=== PATIENT | male | born 1980 | race Hispanic/Latino ===

== ENCOUNTER 2017-11-08 17:36 | Emergency (ER) | payer BC ==
[2017-11-08] MEDS ORDERED: ONDANSETRON 4 MG/2 ML VIAL ONE (19:06)
[2017-11-08] MEDS ORDERED: MORPHINE 4 MG/ML SYR ONE (19:06)
[2017-11-08] MEDS ORDERED: NA CHLORIDE 0.9% 1,000 ML ONE (19:15)
[2017-11-08 19:16] LABS: Absolute Lymphocytes (CBC) 1.6 K/uL (0.7-4.9); Absolute Monocytes 0.7 K/uL (0.1-1.3); Absolute Neutrophil 9.8 K/uL (1.8-8.0); Basophils % 0.2 % (0-1.3); Eosinophils % 0.1 % (0-4.4); Hematocrit 45.6 % (39.6-49.0); Lymphocytes % 13.2 % (15.3-44.8); MCH 27.6 pg (27.0-35.0); MPV 10.4 fL (7.6-11.3); RBC Red Blood Cell Count 5.42 M/uL (4.33-5.43)
[2017-11-08 19:19] LABS: Urine Blood 3+ (NEG); Urine Glucose NEGATIVE (NEG); Urine Protein 3+ (NEG); Urine pH 5.5 (5.0-7.0)
--- NOTE | 2017-11-08 19:22 | RAD REPORT ---
EXAM DESCRIPTION: CT - Stone Protocol - 11/08/2017 6:58 pm CLINICAL HISTORY: Flank pain, hematuria COMPARISON: None. TECHNIQUE: Axial 5 mm thick images were obtained without oral or IV contrast. The [id number] span s the entirety of the system including uppermost abdomen and lung bases. All CT scans are performed using dose optimization technique as appropriate and may include automated exposure control or mA/KV adjustment according to patient size. FINDINGS: No hydronephrosis is present and no obstructing ureteral calculi. No suspicious renal mass es. Isodense masses and pyelonephritis are not excluded on a stone protocol CT scan. Urinary bladder is tightly contracted precluding assessment. No bladder calculus seen. No suspicious prostate gland o r seminal vesicle finding. Imaged portions of the liver, spleen and pancreas show no suspicious findings on non-contrast imaging . No gallbladder or biliary tree abnormality identified. No significant adrenal finding. No suspicious bowel findings. No appendicitis. Small bilateral fat filled inguinal hernias are present. No free air, free fluid or inflammatory stra nding. No significant bony abnormality. IMPRESSION: No hydronephrosis, obstructing calculus or acute finding. Urinary bladder is tightly contracted limiting assessment. Isodense masses and pyelonephritis are not excluded on stone protocol technique. Remainder of the study without acute finding.
[2017-11-08 19:27] LABS: ALT/SGPT 43 U/L (12-78); AST/SGOT 28 U/L (15-37); Albumin 3.3 g/dL (3.4-5.0); Alkaline Phosphatase 74 U/L (45-117); BUN Blood Urea Nitrogen 6 mg/dL (7-18); Bicarbonate 29 mmol/L (21-32); Bilirubin Direct 0.3 mg/dL (0-0.2); Bilirubin Total 1.1 mg/dL (0.2-1.0); Glucose Level 115 mg/dL (74-106); Lipase 78 U/L (73-393); Potassium 3.3 mmol/L (3.5-5.1); Protein, Total 7.4 g/dL (6.4-8.2); Sodium Level 141 mmol/L (136-145)
[2017-11-08 19:36] LABS: Urine Amorphous Sediment 2+ /HPF (NONE SEEN); Urine Bacteria >50 /HPF (NONE SEEN); Urine Culture Reflex Order REFLEXED
[2017-11-08] MEDS ORDERED: CEFTRIAXONE/SWI 1gm 1 GM/10 ML SYR ONE (19:52)
[2017-11-08] MEDS ORDERED: POTASSIUM CL SA 10 MEQ TAB PO ONE (19:52)
--- NOTE | 2017-11-08 19:56 | EDPHYS ---
Physician Documentation [facility] Name: Jose A Goetz Jr Age: 37 yrs Sex: Male : 1980 Arrival Date: 11/08/2017 Time: 17:40 Bed 28 Private MD: Allie Moran H ED Physician Ivan Olivares HPI: 11/08 19:00 This 37 yrs old Male presents to ER via Ambulatory with complaints of Urinary kb Problem. 19:00 The patient presents with urinary symptoms, urinary frequency, feels like he needs to kb go then cannot, difficulty urinating. Onset: The symptoms/episode began/occurred this morning. Modifying factors: The symptoms are alleviated by nothing, the symptoms are aggravated by urinating. Associated signs and symptoms: Pertinent positives: abdominal pain, hematuria, Pertinent negatives: constipation, diarrhea, dysuria, fever. Severity of symptoms: At their worst the symptoms were moderate, in the emergency department the symptoms are unchanged. The patient has not experienced similar symptoms in the past. The patient has been recently seen by a physician: the dr that did his gastric sleeve was seen today.. Pt states he has had urinary frequency, difficulty urinating and hematuria since this morning. Also c/o LUQ pain after eating for 2 weeks. Historical: - Allergies: 17:50 No Known Allergies; aj1 - Home Meds: 17:50 None [Active]; aj1 - PMHx: 17:50 None; aj1 - PSHx: 17:50 gastric sleeve; aj1 - Immunization history:: Flu vaccine is not up to date. - Social history:: Smoking status: Patient/guardian denies using tobacco, Patient uses street drugs, marijuana. - Ebola Screening: : Patient denies travel to an Ebola-affected area in the 21 days before illness onset. ROS: 19:00 Constitutional: Negative for fever, chills, and weight loss, Cardiovascular: Negative kb for chest pain, palpitations, and edema, Respiratory: Negative for shortness of breath, cough, wheezing, and pleuritic chest pain, Back: Negative for injury and pain, MS/Extremity: Negative for injury and deformity, Skin: Negative for injury, rash, and discoloration, Neuro: Negative for headache, weakness, numbness, tingling, and seizure. 19:00 Abdomen/GI: Positive for abdominal pain, nausea and vomiting. 19:00 : Positive for urinary symptoms, urinary frequency, hematuria, difficulty urinating. Exam: 19:00 Constitutional: This is a well developed, well nourished patient who is awake, alert, kb and in no acute distress. Head/Face: Normocephalic, atraumatic. Chest/axilla: Normal chest wall appearance and motion. Nontender with no deformity. No lesions are appreciated. Cardiovascular: Regular rate and rhythm with a normal S1 and S2. No gallops, murmurs, or rubs. Normal PMI, no JVD. No pulse deficits. Respiratory: Lungs have equal breath sounds bilaterally, clear to auscultation and percussion. No rales, rhonchi or wheezes noted. No increased work of breathing, no retractions or nasal flaring. Back: No spinal tenderness. No costovertebral tenderness. Full range of motion. Skin: Warm, dry with normal turgor. Normal color with no rashes, no lesions, and no evidence of cellulitis. MS/ Extremity: Pulses equal, no cyanosis. Neurovascular intact. Full, normal range of motion. Neuro: Awake and alert, GCS 15, oriented to person, place, time, and situation. Cranial nerves II-XII grossly intact. Motor strength 5/5 in all extremities. Sensory grossly intact. Cerebellar exam normal. Normal gait. 19:00 Abdomen/GI: Inspection: abdomen appears normal, Bowel sounds: normal, in all quadrants, Palpation: soft, in all quadrants, nontender, in the right upper quadrant, right lower quadrant and left lower quadrant, moderate abdominal tenderness, in the left upper quadrant. Vital Signs: 17:50 BP 124 / 74; Pulse 84; Resp 18; Temp 98.4; Pulse Ox 97% on R/A; Weight 140.61 kg (R); aj1 Height 5 ft. 9 in. (175.26 cm) (R); 19:13 BP 118 / 86; rv 17:50 Body Mass Index 45.78 (140.61 kg, 175.26 cm) aj1 MDM: 18:25 Patient medically screened. kb 19:00 Data reviewed: vital signs, nurses notes. Data interpreted: Pulse oximetry: on room air kb is 97 %. Interpretation: normal. 19:31 Counseling: I had a detailed discussion with the patient and/or guardian regarding: the kb historical points, exam findings, and any diagnostic results supporting the discharge/admit diagnosis, lab results, radiology results, the need for outpatient follow up, a family practitioner, to return to the emergency department if symptoms worsen or persist or if there are any questions or concerns that arise at home. 11/08 18:06 Order name: Urine Microscopic Only 11/08 18:06 Order name: Urine Microscopic Only; Complete Time: 19:37 EDPR 11/08 18:38 Order name: Urine Dipstick--Ancillary (enter results); Complete Time: 19:20 ss 11/08 18:45 Order name: Basic Metabolic Panel 11/08 18:45 Order name: CBC with Diff; Complete Time: 19:27 kb 11/08 18:45 Order name: Hepatic Function; Complete Time: 19:30 kb 11/08 18:45 Order name: Lipase; Complete Time: 19:30 kb 11/08 18:46 Order name: Basic Metabolic Panel; Complete Time: 19:28 EDPR 11/08 18:47 Order name: CT Stone Protocol; Complete Time: 19:23 kb 11/08 19:37 Order name: Urine Culture [facility] 11/08 18:06 Order name: Urine Dipstick-Ancillary (obtain specimen); Complete Time: 18:37 kb 11/08 18:45 Order name: IV Saline Lock; Complete Time: 19:08 kb 11/08 18:45 Order name: Labs collected and sent; Complete Time: 19:08 kb Administered Medications: 19:14 Drug: NS 0.9% 1000 ml Route: IV; Rate: 1000 ml; Site: right antecubital; rv 19:53 Drug: Rocephin - (cefTRIAXone) 1 grams Route: IVPB; Infused Over: 30 mins; Site: right rv antecubital; 20:13 Follow up: IV Status: Completed infusion rv 19:53 Drug: Potassium Chloride 20 mEq Route: PO; rv 20:13 Follow up: Response: No adverse reaction rv Disposition: 11/09 07:35 Co-signature as Attending Physician, Ivan Olivares MD. rn Disposition: 11/08/17 19:55 Discharged to Home. Impression: Urinary tract infection, site not specified, Upper abdominal pain, unspecified. - Condition is Stable. - Discharge Instructions: Urinary Tract Infection, Adult, Mqmm-[id number], Abdominal Pain, Adult, Tchs-mh-Deru. - Prescriptions for Augmentin 875- 125 mg Oral Tablet - take 1 tablet by ORAL route every 12 hours for 10 days; 20 tablet. Bentyl 20 mg Oral Tablet - take 1 tablet by ORAL route every 6 hours As needed; 20 tablet. Zofran 4 mg Oral Tablet - take 1 tablet by ORAL route every 6 hours As needed; 20 tablet. - Medication Reconciliation Form, Thank You Letter, Antibiotic Education, Prescription Opioid Use form. - Follow up: Emergency Department; When: As needed; Reason: Worsening of condition. Follow up: Private Physician; When: 2 - 3 days; Reason: Recheck today's complaints, Continuance of care, Re-evaluation by your physician. Signatures: Dispatcher [employer] [facility] Joy Soriano, MARILUZ KING-Neetu Garcia RN RN aj1 Ivan Olivares MD MD rn Vicente, Ronaldo, RN RN rv Corrections: (The following items were deleted from the chart) 11/08 18:50 18:46 Abdomen Pelvis W Con+CT.RAD.BRZ ordered. [facility] 19:38 19:00 Pt states he has had urinary frequency, difficulty urinating and hematuria since kb this morning. Also c/o LUQ pain after eating for 2 months. . kb 20:15 19:55 11/08/2017 19:55 Discharged to Home. Impression: Urinary tract infection, site rv not specified; Upper abdominal pain, unspecified. Condition is Stable. Discharge Instructions: Urinary Tract Infection, Adult, Qiun-ju-Jrdf, Abdominal Pain, Adult, Vsme-nm-Kqsc. Prescriptions for Augmentin 875-125 mg Oral Tablet - take 1 tablet by ORAL route every 12 hours for 10 days; 20 tablet, Bentyl 20 mg Oral Tablet - take 1 tablet by ORAL route every 6 hours As needed; 20 tablet, Zofran 4 mg Oral Tablet - take 1 tablet by ORAL route every 6 hours As needed; 20 tablet. and Forms are Medication Reconciliation Form, Thank You Letter, Antibiotic Education, Prescription Opioid Use. Follow up: Emergency Department; When: As needed; Reason: Worsening of condition. Follow up: Private Physician; When: 2 - 3 days; Reason: Recheck today's complaints, Continuance of care, Re-evaluation by your physician. kb
--- NOTE | 2017-11-08 19:56 | ER ---
Nurse's Notes [facility] Name: Jose A Goetz Jr Age: 37 yrs Sex: Male : 1980 Arrival Date: 11/08/2017 Time: 17:40 Bed 28 Private MD: Allie Moran H Diagnosis: Urinary tract infection, site not specified;Upper abdominal pain, unspecified Presentation: 11/08 17:47 Presenting complaint: Patient states: Abominal pain for the past week and a half. aj1 Reports that he has pain everytime that he eats. Reports urinary frequency and urgency. States that he also saw some blood in his urine. Denies N/V/D. Denies fever. Transition of care: patient was not received from another setting of care. Onset of symptoms was October 2017. Risk Assessment: Do you want to hurt yourself or someone else? Patient reports no desire to harm self or others. Initial Sepsis Screen: Does the patient meet any 2 criteria? No. Patient's initial sepsis screen is negative. Does the patient have a suspected source of infection? No. Patient's initial sepsis screen is negative. Care prior to arrival: None. 17:47 Method Of Arrival: Ambulatory aj1 17:47 Acuity: TIMMY 3 aj1 Triage Assessment: 17:50 General: Appears in no apparent distress. comfortable, Behavior is calm, cooperative, aj1 appropriate for age. Pain: Complains of pain in epigastric area Pain currently is 7 out of 10 on a pain scale. Neuro: Level of Consciousness is awake, alert, obeys commands. Cardiovascular: Patient's skin is warm and dry. Respiratory: Airway is patent Respiratory effort is even, unlabored, Respiratory pattern is regular, symmetrical. GI: Reports upper abdominal pain. : Reports urgency, urinary frequency. Historical: - Allergies: 17:50 No Known Allergies; aj1 - Home Meds: 17:50 None [Active]; aj1 - PMHx: 17:50 None; aj1 - PSHx: 17:50 gastric sleeve; aj1 - Immunization history:: Flu vaccine is not up to date. - Social history:: Smoking status: Patient/guardian denies using tobacco, Patient uses street drugs, marijuana. - Ebola Screening: : Patient denies travel to an Ebola-affected area in the 21 days before illness onset. Screenin:13 Abuse screen: Denies threats or abuse. Denies injuries from another. Nutritional rv screening: No deficits noted. Tuberculosis screening: No symptoms or risk factors identified. Fall Risk None identified. Assessment: 19:11 General: Appears in no apparent distress. comfortable, Behavior is calm, cooperative. rv Pain: Complains of pain in DURING URINATION. Neuro: Level of Consciousness is awake, alert, obeys commands, Oriented to person, place, time, situation. Cardiovascular: Capillary refill < 3 seconds. Respiratory: Airway is patent. GI: No signs and/or symptoms were reported involving the gastrointestinal system. : Reports burning with urination. EENT: No signs and/or symptoms were reported regarding the EENT system. Derm: Skin is intact. Vital Signs: 17:50 BP 124 / 74; Pulse 84; Resp 18; Temp 98.4; Pulse Ox 97% on R/A; Weight 140.61 kg (R); aj1 Height 5 ft. 9 in. (175.26 cm) (R); 19:13 BP 118 / 86; rv 17:50 Body Mass Index 45.78 (140.61 kg, 175.26 cm) aj1 ED Course: 17:40 Patient arrived in ED. sb2 17:40 Allie Moran DO is Private Physician. sb2 17:50 Triage completed. aj1 17:50 Arm band placed on Patient placed in waiting room, Patient notified of wait time. aj1 17:57 [facility]C [facility] kb 17:57 Ivan Olivares MD is Attending Physician. kb 18:45 Urine Microscopic Only Sent. ss 18:[address] via wheelchair. jj2 18:58 CT completed. Patient tolerated procedure well. Patient moved back from CT. jj2 19:00 CT Stone Protocol In Process Unspecified. EDMS 19:14 Inserted saline lock: 20 gauge in right antecubital area, using aseptic technique. rv Blood collected. 20:13 Patient has correct armband on for positive identification. Bed in low position. Call rv light in reach. Side rails up X 1. Adult w/ patient. Pulse ox on. NIBP on. 20:14 IV discontinued, bleeding controlled, No redness/swelling at site. Pressure dressing rv applied. 20:14 No provider procedures requiring assistance completed. rv Administered Medications: 19:14 Drug: NS 0.9% 1000 ml Route: IV; Rate: 1000 ml; Site: right antecubital; rv 19:53 Drug: Rocephin - (cefTRIAXone) 1 grams Route: IVPB; Infused Over: 30 mins; Site: right rv antecubital; 20:13 Follow up: IV Status: Completed infusion rv 19:53 Drug: Potassium Chloride 20 mEq Route: PO; rv 20:13 Follow up: Response: No adverse reaction rv Outcome: 19:55 Discharge ordered by . kalyn 20:14 Discharged to home ambulatory. rv 20:14 Condition: good 20:14 Discharge instructions given to patient, family, Instructed on discharge instructions, follow up and referral plans. medication usage, Demonstrated understanding of instructions, follow-up care, medications, Prescriptions given X 3. 20:15 Patient left the ED. rv Addendum: 11/12/2017 09:31 Addendum: Culture Results: Positive urine culture. No further action required. Bacteria s s sensitive to prescribed antibiotic. Signatures: Dispatcher [employer] EDMS Joy Soriano, PRODUCT DEVELOPMENT CONSULTANT-C PRODUCT DEVELOPMENT CONSULTANT-Ckb Neetu Chin, RN RN aj1 Jagdish Howard jMerari Alegria RN RN Indu [place] sb2 Alfredo Ellison RN RN rv
[2017-11-08 20:23] VITALS: BP 118/86; TEMP 98.4; O2SAT 97
== END 2017-11-08 20:15 | disposition home or self-care (01) ==
LOC: ER 17:36
DX: N39.0 Urinary tract infection, site not specified (principal); R10.10 Upper abdominal pain, unspecified
CPT/HCPCS: 36415; 74176; 76377; 80048; 80076; 81003; 81015; 83690; 85025; 87077; 87086; 87088; 87186; 96365; 99284; J0696; J2405; J7030

== ENCOUNTER 2017-12-01 12:52 | Emergency (ER) | payer BC ==
[2017-12-01 13:51] LABS: Urine Blood 3+ (NEG); Urine Glucose NEGATIVE (NEG); Urine Protein 3+ (NEG); Urine Specific Gravity 1.025 (1.005-1.030)
[2017-12-01] MEDS ORDERED: CEFTRIAXONE 1000 MG/VIAL ONE (13:54)
[2017-12-01] MEDS ORDERED: PHENAZOPYRIDINE 100MG TAB PO ONE (13:54)
[2017-12-01] MEDS ORDERED: HYDROCODONE/APAP 5/325 MG TAB ONE (13:54)
--- NOTE | 2017-12-01 14:02 | ER ---
Nurse's Notes [facility] Name: Jose A Goetz Jr Age: 37 yrs Sex: Male : 1980 Arrival Date: 12/01/2017 Time: 12:53 Bed 5 Private MD: Allie Moran H Diagnosis: Urinary tract infection, site not specified Presentation: 12/01 13:17 Presenting complaint: Patient states: "I think I have a UTI" Reports urinary frequency, aj1 dysuria since this morning. Transition of care: patient was not received from another setting of care. Onset of symptoms was December 01, 2017 at 10:00. Risk Assessment: Do you want to hurt yourself or someone else? Patient reports no desire to harm self or others. Initial Sepsis Screen: Does the patient meet any 2 criteria? No. Patient's initial sepsis screen is negative. Does the patient have a suspected source of infection? Yes: Dysuria/Frequency/Urgency/UTI. Care prior to arrival: None. 13:17 Method Of Arrival: Ambulatory aj 13:17 Acuity: TIMMY 4 aj1 Triage Assessment: 13:18 General: Appears in no apparent distress. comfortable, Behavior is calm, cooperative, aj1 appropriate for age. Pain: Denies pain. Neuro: Level of Consciousness is awake, alert, obeys commands. Cardiovascular: Patient's skin is warm and dry. Respiratory: Airway is patent Respiratory effort is even, unlabored, Respiratory pattern is regular, symmetrical. : Reports burning with urination, urinary frequency. Historical: - Allergies: 13:18 No Known Allergies; aj1 - Home Meds: 13:18 Xanax Oral [Active]; aj1 - PMHx: 13:18 Anxiety; aj1 - PSHx: 13:18 gastric sleeve; aj1 - Immunization history:: Flu vaccine is not up to date. - Social history:: Smoking status: Patient/guardian denies using tobacco, Patient uses street drugs, marijuana. - Ebola Screening: : Patient denies travel to an Ebola-affected area in the 21 days before illness onset. Screenin:30 Abuse screen: Denies threats or abuse. Nutritional screening: No deficits noted. rb1 Tuberculosis screening: No symptoms or risk factors identified. Fall Risk None identified. Assessment: 13:30 General: Appears in no apparent distress. comfortable, obese, Behavior is calm, rb1 cooperative, Denies fever. Pain: Denies pain. Neuro: Level of Consciousness is awake, alert, obeys commands, Oriented to person, place, time, situation. Cardiovascular: Capillary refill < 3 seconds is brisk in bilateral fingers. Respiratory: Airway is patent Respiratory effort is even, unlabored, Respiratory pattern is regular, symmetrical. GI: No signs and/or symptoms were reported involving the gastrointestinal system. : Reports urgency, since this morning Pt. stated, "There is blood in my urine and I feel like I have to go, but I only dribble when I try to go.". Derm: Skin is dry, Skin is normal, Skin temperature is warm. Musculoskeletal: Range of motion: intact in all extremities. Vital Signs: 13:18 BP 128 / 69; Pulse 79; Resp 18; Temp 97.8; Pulse Ox 96% on R/A; Weight 131.54 kg (R); aj1 Height 5 ft. 9 in. (175.26 cm) (R); Pain 0/10; 13:18 Body Mass Index 42.83 (131.54 kg, 175.26 cm) aj1 ED Course: 12:53 Patient arrived in ED. tw3 12:54 Allie Moran DO is Private Physician. tw3 13:17 Triage completed. aj1 13:18 Arm band placed on Patient placed in an exam room. aj1 13:20 Urine collected: clean catch specimen, clear, tea colored, blood tinged, Amount Voided: jp3 10mL. 13:25 Sofya Ahumada FNP-C is [facility]. snw 13:25 Vaughn Mckeon MD is Attending Physician. snw 13:30 Patient has correct armband on for positive identification. Bed in low position. Call rb1 light in reach. Side rails up X 1. Pulse ox on. NIBP on. 13:33 Urine Culture Sent. jp3 13:43 Asia Velazco, BALTA is Primary Nurse. hb 14:02 Allie Moran DO is Referral Physician. snw 14:23 No provider procedures requiring assistance completed. Patient did not have IV access hb during this emergency room visit. Administered Medications: 13:59 Drug: Rocephin (cefTRIAXone) 1 grams Route: IM; Site: right gluteus; hb 14:22 Follow up: Response: No adverse reaction hb 13:59 Drug: [place] 5 mg-325 mg 1 tabs Route: PO; hb 14:22 Follow up: Response: Medication administered at discharge. hb 13:59 Drug: Pyridium 200 mg Route: PO; hb 14:22 Follow up: Response: No adverse reaction hb Outcome: 14:02 Discharge ordered by MD. sullivan 14:23 Discharged to home ambulatory, with family. hb 14:23 Condition: stable 14:23 Discharge instructions given to patient, Instructed on discharge instructions, follow up and referral plans. medication usage, Demonstrated understanding of instructions, follow-up care, medications, Prescriptions given X 1. 14:24 Patient left the ED. Signatures: Neetu Chin RN RN aj1 Sofya Ahumada, RIVER BOAT CAPTAIN-C RIVER BOAT CAPTAIN-Csnw Amy Sol RN RN rb1 Asia Velazco RN RN Luciana Quiñonez3 Kj Ren jp3
--- NOTE | 2017-12-01 14:03 | EDPHYS ---
Physician Documentation [facility] Name: Jose A Goetz Jr Age: 37 yrs Sex: Male : 1980 Arrival Date: 12/01/2017 Time: 12:53 Bed 5 Private MD: Allie Moran H ED Physician Vaughn Mckeon HPI: 12/01 13:58 This 37 yrs old Male presents to ER via Ambulatory with complaints of Urinary snw Problem. 13:58 The patient presents with urinary symptoms, dysuria, urinary frequency. Onset: The snw symptoms/episode began/occurred suddenly, and became persistent. Associated signs and symptoms: Pertinent positives: dysuria, hematuria. Severity of symptoms: At their worst the symptoms were moderate. The patient has experienced a previous episode, approximately 3 months ago, and the symptoms today are exactly the same. three weeks ago was pt's first UTI, took Augmentin x 10 days. 14:03 Pt is not circumscised. snw Historical: - Allergies: 13:18 No Known Allergies; aj1 - Home Meds: 13:18 Xanax Oral [Active]; aj1 - PMHx: 13:18 Anxiety; aj1 - PSHx: 13:18 gastric sleeve; aj1 - Immunization history:: Flu vaccine is not up to date. - Social history:: Smoking status: Patient/guardian denies using tobacco, Patient uses street drugs, marijuana. - Ebola Screening: : Patient denies travel to an Ebola-affected area in the 21 days before illness onset. ROS: 13:56 Eyes: Negative for injury, pain, redness, and discharge, ENT: Negative for injury, snw pain, and discharge, Neck: Negative for injury, pain, and swelling, Cardiovascular: Negative for chest pain, palpitations, and edema, Respiratory: Negative for shortness of breath, cough, wheezing, and pleuritic chest pain, Abdomen/GI: Negative for abdominal pain, nausea, vomiting, diarrhea, and constipation, Back: Negative for injury and pain, MS/Extremity: Negative for injury and deformity, Skin: Negative for injury, rash, and discoloration, Neuro: Negative for headache, weakness, numbness, tingling, and seizure. 13:56 Constitutional: Positive for malaise. 13:56 : Positive for urinary symptoms, urinary frequency, small amounts, hematuria. Exam: 13:56 Constitutional: This is a well developed, well nourished patient who is awake, alert, snw and in no acute distress. Head/Face: Normocephalic, atraumatic. Eyes: Pupils equal round and reactive to light, extra-ocular motions intact. Lids and lashes normal. Conjunctiva and sclera are non-icteric and not injected. Cornea within normal limits. Periorbital areas with no swelling, redness, or edema. ENT: Nares patent. No nasal discharge, no septal abnormalities noted. Tympanic membranes are normal and external auditory canals are clear. Oropharynx with no redness, swelling, or masses, exudates, or evidence of obstruction, uvula midline. Mucous membranes moist. Neck: Trachea midline, no thyromegaly or masses palpated, and no cervical lymphadenopathy. Supple, full range of motion without nuchal rigidity, or vertebral point tenderness. No Meningismus. Chest/axilla: Normal chest wall appearance and motion. Nontender with no deformity. No lesions are appreciated. Cardiovascular: Regular rate and rhythm with a normal S1 and S2. No gallops, murmurs, or rubs. Normal PMI, no JVD. No pulse deficits. Respiratory: Lungs have equal breath sounds bilaterally, clear to auscultation and percussion. No rales, rhonchi or wheezes noted. No increased work of breathing, no retractions or nasal flaring. Abdomen/GI: Soft, non-tender, with normal bowel sounds. No distension or tympany. No guarding or rebound. No evidence of tenderness throughout. Back: No spinal tenderness. No costovertebral tenderness. Full range of motion. Skin: Warm, dry with normal turgor. Normal color with no rashes, no lesions, and no evidence of cellulitis. MS/ Extremity: Pulses equal, no cyanosis. Neurovascular intact. Full, normal range of motion. Neuro: Awake and alert, GCS 15, oriented to person, place, time, and situation. Cranial nerves II-XII grossly intact. Motor strength 5/5 in all extremities. Sensory grossly intact. Cerebellar exam normal. Normal gait. Psych: Awake, alert, with orientation to person, place and time. Behavior, mood, and affect are within normal limits. Vital Signs: 13:18 BP 128 / 69; Pulse 79; Resp 18; Temp 97.8; Pulse Ox 96% on R/A; Weight 131.54 kg (R); aj1 Height 5 ft. 9 in. (175.26 cm) (R); Pain 0/10; 13:18 Body Mass Index 42.83 (131.54 kg, 175.26 cm) aj1 MDM: 13:27 Patient medically screened. snw 14:02 Data reviewed: vital signs, nurses notes. Data interpreted: Pulse oximetry: on room air snw is 96 %. Interpretation: acceptable. Counseling: I had a detailed discussion with the patient and/or guardian regarding: the historical points, exam findings, and any diagnostic results supporting the discharge/admit diagnosis, lab results, the need for outpatient follow up, to return to the emergency department if symptoms worsen or persist or if there are any questions or concerns that arise at home. Special discussion: Based on the history and exam findings, there is no indication for further emergent testing or inpatient evaluation. I discussed with the patient/guardian the need to see the primary care provider for further evaluation of the symptoms. I discussed with the patient/guardian the need to see the urologist for further evaluation of the symptoms. 12/01 13:26 Order name: Urine Culture snw 12/01 13:34 Order name: Urine Dipstick--Ancillary (enter results); Complete Time: 13:52 ms 12/01 13:26 Order name: Urine Dipstick-Ancillary (obtain specimen); Complete Time: 13:33 snw Administered Medications: 13:59 Drug: Rocephin (cefTRIAXone) 1 grams Route: IM; Site: right gluteus; hb 14:22 Follow up: Response: No adverse reaction hb 13:59 Drug: [place] 5 mg-325 mg 1 tabs Route: PO; hb 14:22 Follow up: Response: Medication administered at discharge. hb 13:59 Drug: Pyridium 200 mg Route: PO; hb 14:22 Follow up: Response: No adverse reaction hb Disposition: 15:24 Co-signature as Attending Physician, Vaughn Mckeon MD I agree with the assessment and kdr plan of care. Disposition: 12/01/17 14:02 Discharged to Home. Impression: Urinary tract infection, site not specified. - Condition is Stable. - Discharge Instructions: Urinary Tract Infection, Adult. - Prescriptions for Doxycycline Hyclate 100 mg Oral Tablet - take 1 tablet by ORAL route every 12 hours; 20 tablet. - Medication Reconciliation Form, Thank You Letter, Antibiotic Education, Prescription Opioid Use form. - Follow up: Allie Moran DO; When: 2 - 3 days; Reason: Recheck today's complaints, Continuance of care, Re-evaluation by your physician. Follow up: Emergency Department; When: As needed; Reason: Worsening of condition. Signatures: Dispatcher [employer] EDNeetu Sutherland RN RN aj1 Vaughn Mckeon MD MD kdr Sofya Ahumada, TRANSIT BUS DRIVER-C TRANSIT BUS DRIVER-Csnw Asia Velazco, BALTA RN hb Corrections: (The following items were deleted from the chart) 14:24 14:02 12/01/2017 14:02 Discharged to Home. Impression: Urinary tract infection, site hb not specified. Condition is Stable. Forms are Medication Reconciliation Form, Thank You Letter, Antibiotic Education, Prescription Opioid Use. Follow up: Allie Moran; When: 2 - 3 days; Reason: Recheck today's complaints, Continuance of care, Re-evaluation by your physician. Follow up: Emergency Department; When: As needed; Reason: Worsening of condition. snw
[2017-12-01 14:28] VITALS: BP 128/69; TEMP 97.8; O2SAT 96
== END 2017-12-01 14:24 | disposition home or self-care (01) ==
LOC: ER 12:52
DX: N39.0 Urinary tract infection, site not specified (principal); F41.9 Anxiety disorder, unspecified
CPT/HCPCS: 81003; 87077; 87086; 87088; 87186; 96372; 99284

== ENCOUNTER 2018-12-05 22:52 | Emergency (ER) | payer BC, SELFPAY ==
[2018-12-05 23:30] LABS: Urine Blood 3+ (NEG); Urine Glucose NEGATIVE (NEG); Urine Protein 2+ (NEG); Urine Specific Gravity >1.030 (1.005-1.030); Urine pH 5.5 (5.0-7.0)
[2018-12-06 00:22] LABS: Urine Bacteria <20 /HPF (NONE SEEN); Urine Culture Reflex Order REFLEXED; Urine Mucus LIGHT /HPF (NONE SEEN); Urine RBC 20-50 /HPF (NONE SEEN)
--- NOTE | 2018-12-06 00:23 | ER ---
Nurse's Notes [facility] Name: Jose A Goetz Jr Age: 38 yrs Sex: Male : 1980 Arrival Date: 12/05/2018 Time: 23:00 Bed 16 Private MD: Diagnosis: Urinary tract infection, site not specified Presentation: 12/05 23:00 Presenting complaint: Patient states: that he is having pain and burning with fc urination. Denies any abd. pain or flank pain. Transition of care: patient was not received from another setting of care. Onset of symptoms was December 05, 2018. Risk Assessment: Do you want to hurt yourself or someone else? Patient reports no desire to harm self or others. Initial Sepsis Screen: Does the patient meet any 2 criteria? Yes Does the patient have a suspected source of infection? No. Patient's initial sepsis screen is negative. Care prior to arrival: None. 23:00 Method Of Arrival: Ambulatory fc 23:00 Acuity: TIMMY 4 Historical: - Allergies: 23:20 No Known Allergies; fc - Home Meds: 23:20 Xanax 2 mg oral tab 1 tab twice a day [Active]; fc - PMHx: 23:20 Anxiety; fc - PSHx: 23:20 gastric sleeve; fc - Immunization history:: Last tetanus immunization: unknown. - Social history:: Smoking status: Patient uses tobacco products, denies chronic smoking, but will smoke occasionally, Patient uses alcohol, every other day. street drugs, marijuana. - Ebola Screening: : Patient negative for fever greater than or equal to 101.5 degrees Fahrenheit, and additional compatible Ebola Virus Disease symptoms Patient denies exposure to infectious person Patient denies travel to an Ebola-affected area in the 21 days before illness onset. Screenin:19 Abuse screen: Denies threats or abuse. Nutritional screening: No deficits noted. fc Tuberculosis screening: No symptoms or risk factors identified. Fall Risk None identified. Assessment: 23:15 General: Appears in no apparent distress. comfortable, Behavior is calm, cooperative, rr5 appropriate for age. 23:15 Pain: Complains of pain in urethra Pain does not radiate. Pain currently is 8 out of 10 rr5 on a pain scale. Quality of pain is described as burning, Pain began gradually, Is intermittent. Neuro: Level of Consciousness is awake, alert, obeys commands, Oriented to person, place, time, situation, Appropriate for age. Cardiovascular: Capillary refill < 3 seconds Patient's skin is warm and dry. Respiratory: Airway is patent Respiratory effort is even, unlabored, Respiratory pattern is regular, symmetrical. GI: No signs and/or symptoms were reported involving the gastrointestinal system. : Reports burning with urination. EENT: No signs and/or symptoms were reported regarding the EENT system. Derm: Skin is intact, Skin temperature is warm. Musculoskeletal: Circulation, motion, and sensation intact. Capillary refill < 3 seconds. 12/06 00:00 Reassessment: Patient appears in no apparent distress at this time. No changes from rr5 previously documented assessment. Patient is alert, oriented x 3, equal unlabored respirations, skin warm/dry/pink. awaiting for urine result. 00:50 Reassessment: Patient appears in no apparent distress at this time. Patient and/or rr5 family updated on plan of care and expected duration. Pain level reassessed. Patient is alert, oriented x 3, equal unlabored respirations, skin warm/dry/pink. discharge instruction given and explained without complaints made, verbalized understanding. Vital Signs: 12/05 23:00 BP 107 / 62; Pulse 79; Resp 16; Temp 98.2(O); Pulse Ox 97% on R/A; Weight 104.33 kg fc (R); Height 5 ft. 9 in. (175.26 cm) (R); Pain 8/10; 12/06 00:00 BP 110 / 75; Pulse 75; Resp 17; Temp 98; Pulse Ox 99% on R/A; rr5 00:50 BP 121 / 62; Pulse 70; Resp 18; Temp 97.9; Pulse Ox 98% ; rr5 12/05 23:00 Body Mass Index 33.96 (104.33 kg, 175.26 cm) ED Course: 12/05 23:00 Patient arrived in ED. ag3 23:00 Arm band placed on Patient placed in an exam room, on a stretcher. fc 23:04 Nahid Woodruff MD is Attending Physician. gs 23:08 Lamonte Dalton RN is Primary Nurse. rr5 23:17 Triage completed. fc 23:19 Patient has correct armband on for positive identification. Bed in low position. Call light in reach. Pulse ox on. NIBP on. 23:19 No provider procedures requiring assistance completed. 12/06 00:58 Patient did not have IV access during this emergency room visit. rr5 Administered Medications: 00:30 Drug: KeFLEX 1000 mg Route: PO; rr5 00:50 Follow up: Response: No adverse reaction; Medication administered at discharge. rr5 Outcome: 00:21 Discharge ordered by . 00:58 Discharged to home ambulatory, with family. rr5 00:58 Condition: stable 00:58 Discharge instructions given to patient, Instructed on discharge instructions, follow up and referral plans. medication usage, Demonstrated understanding of instructions, follow-up care, medications, Prescriptions given X 1. 00:59 Patient left the ED. rr5 Signatures: Sally Gregorio, RN RN Nahid Woodruff MD MD Margaret Benitez Raymond RN RN rr5
--- NOTE | 2018-12-06 00:23 | EDPHYS ---
Physician Documentation [facility] Name: Jose A Goetz Jr Age: 38 yrs Sex: Male : 1980 Arrival Date: 12/05/2018 Time: 23:00 Bed 16 Private MD: ED Physician Nahid Woodrfuf HPI: 12/06 00:19 This 38 yrs old Male presents to ER via Ambulatory with complaints of Pain gs With Urination. 00:19 Onset: The symptoms/episode began/occurred yesterday. Modifying factors: The symptoms gs are alleviated by nothing, the symptoms are aggravated by nothing. Associated signs and symptoms: Pertinent negatives: abdominal pain, fever. Severity of symptoms: At their worst the symptoms were severe, in the emergency department the symptoms are unchanged. The patient has experienced similar episodes in the past, a few times. Historical: - Allergies: 12/05 23:20 No Known Allergies; fc - Home Meds: 23:20 Xanax 2 mg oral tab 1 tab twice a day [Active]; fc - PMHx: 23:20 Anxiety; fc - PSHx: 23:20 gastric sleeve; fc - Immunization history:: Last tetanus immunization: unknown. - Social history:: Smoking status: Patient uses tobacco products, denies chronic smoking, but will smoke occasionally, Patient uses alcohol, every other day. street drugs, marijuana. - Ebola Screening: : Patient negative for fever greater than or equal to 101.5 degrees Fahrenheit, and additional compatible Ebola Virus Disease symptoms Patient denies exposure to infectious person Patient denies travel to an Ebola-affected area in the 21 days before illness onset. ROS: 12/06 00:19 All other systems are negative. gs Exam: 00:19 Head/Face: Normocephalic, atraumatic. Eyes: Pupils equal round and reactive to light, gs extra-ocular motions intact. Lids and lashes normal. Conjunctiva and sclera are non-icteric and not injected. Cornea within normal limits. Periorbital areas with no swelling, redness, or edema. ENT: Nares patent. No nasal discharge, no septal abnormalities noted. Tympanic membranes are normal and external auditory canals are clear. Oropharynx with no redness, swelling, or masses, exudates, or evidence of obstruction, uvula midline. Mucous membranes moist. Neck: Trachea midline, no thyromegaly or masses palpated, and no cervical lymphadenopathy. Supple, full range of motion without nuchal rigidity, or vertebral point tenderness. No Meningismus. Chest/axilla: Normal chest wall appearance and motion. Nontender with no deformity. No lesions are appreciated. Cardiovascular: Regular rate and rhythm with a normal S1 and S2. No gallops, murmurs, or rubs. Normal PMI, no JVD. No pulse deficits. Respiratory: Lungs have equal breath sounds bilaterally, clear to auscultation and percussion. No rales, rhonchi or wheezes noted. No increased work of breathing, no retractions or nasal flaring. Abdomen/GI: Soft, non-tender, with normal bowel sounds. No distension or tympany. No guarding or rebound. No evidence of tenderness throughout. Back: No spinal tenderness. No costovertebral tenderness. Full range of motion. Male : Normal genitalia with no discharge or lesions. Skin: Warm, dry with normal turgor. Normal color with no rashes, no lesions, and no evidence of cellulitis. MS/ Extremity: Pulses equal, no cyanosis. Neurovascular intact. Full, normal range of motion. Neuro: Awake and alert, GCS 15, oriented to person, place, time, and situation. Cranial nerves II-XII grossly intact. Motor strength 5/5 in all extremities. Sensory grossly intact. Cerebellar exam normal. Normal gait. 00:19 Constitutional: The patient appears alert, awake. Vital Signs: 12/05 23:00 BP 107 / 62; Pulse 79; Resp 16; Temp 98.2(O); Pulse Ox 97% on R/A; Weight 104.33 kg fc (R); Height 5 ft. 9 in. (175.26 cm) (R); Pain 8/10; 12/06 00:00 BP 110 / 75; Pulse 75; Resp 17; Temp 98; Pulse Ox 99% on R/A; rr5 00:50 BP 121 / 62; Pulse 70; Resp 18; Temp 97.9; Pulse Ox 98% ; rr5 12/05 23:00 Body Mass Index 33.96 (104.33 kg, 175.26 cm) MDM: 12/05 23:25 Patient medically screened. gs 12/06 00:19 Differential diagnosis: nonspecific abdominal pain, UTI. Data reviewed: vital signs, gs nurses notes, lab test result(s). Counseling: I had a detailed discussion with the patient and/or guardian regarding: lab results, the need for outpatient follow up. Response to treatment: the patient's symptoms have mildly improved after treatment, and as a result, I will discharge patient. 12/05 23:05 Order name: Urine Microscopic Only; Complete Time: 00:23 gs 12/05 23:20 Order name: Urine Dipstick--Ancillary (enter results); Complete Time: 23:53 ar5 12/05 23:05 Order name: Urine Dipstick-Ancillary (obtain specimen); Complete Time: 23:29 gs 12/06 00:24 Order name: Urine Culture EDMS Administered Medications: 00:30 Drug: KeFLEX 1000 mg Route: PO; rr5 00:50 Follow up: Response: No adverse reaction; Medication administered at discharge. rr5 Disposition: 12/06/18 00:21 Discharged to Home. Impression: Urinary tract infection, site not specified. - Condition is Stable. - Discharge Instructions: Urinary Tract Infection, Adult. - Prescriptions for Keflex 500 mg Oral Capsule - take 1 capsule by ORAL route every 12 hours for 10 days; 20 capsule. - Medication Reconciliation Form, Thank You Letter, Antibiotic Education, Prescription Opioid Use form. - Follow up: Private Physician; When: 1 - 2 days; Reason: Re-evaluation by your physician. Signatures: Dispatcher [employer] EDUT Sally Gregorio RN RN Nahid Woodruff MD MD gs Roque, Raymond, RN RN rr5 Corrections: (The following items were deleted from the chart) 00:59 00:21 12/06/2018 00:21 Discharged to Home. Impression: Urinary tract infection, site rr5 not specified. Condition is Stable. Forms are Medication Reconciliation Form, Thank You Letter, Antibiotic Education, Prescription Opioid Use. Follow up: Private Physician; When: 1 - 2 days; Reason: Re-evaluation by your physician.
[2018-12-06] MEDS ORDERED: CEPHALEXIN 250 MG CAP ONE (00:29)
[2018-12-06 01:54] VITALS: BP 121/62; TEMP 97.9; O2SAT 98
== END 2018-12-06 00:59 | disposition home or self-care (01) ==
LOC: ER 22:52
DX: N39.0 Urinary tract infection, site not specified (principal); F41.9 Anxiety disorder, unspecified; Z72.0 Tobacco use
CPT/HCPCS: 81003; 81015; 87086; 87088; 99283

== ENCOUNTER 2020-03-04 22:43 | Emergency (ER) | payer BC, SELFPAY ==
--- OUTSIDE RECORDS SUMMARY | 2020-03-04 22:45 | XMS REPORT | Continuity of Care Document ---
:1980 Author Organization [facility] t Address [address] [place] [address] Care Team Providers Name Role Phone Evy Gonzalez DO Attending Clinician Doctor Unassigned, Name Attending Clinician Unavailable Problems This patient has no known problems. Allergies, Adverse Reactions, Alerts This patient has no known allergies or adverse reactions. Medications This patient has no known medications. Procedures This patient has no known procedures. Encounters Start End Encounter Admission Attending Care Care Encounter Source Date/Time Date/Time Type Type Clinicians Facility Department ID 2019-07-28 2019-07-28 Emergency CONSUELO Gonzalez [id number] 12:30:00 14:05:00 Evy Vazquez [id number] [place] [id number] [place] [id number] 2019-07-28 2019-07-28 Orders Doctor ROJAS [id number] 00:00:00 00:00:00 Only UnassMOHINDER smith [id number] [facility] [id number] Results This patient has no known results.
[2020-03-04] MEDS ORDERED: IBUPROFEN 400 MG TAB ONE (23:56)
[2020-03-05] MEDS ORDERED: BUPIVACAINE 0.5% PF 10 ML VIAL ONE (00:42)
[2020-03-05] MEDS ORDERED: LIDOCAINE 1% 20 ML MDV ONE (00:43)
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
--- NOTE | 2020-03-05 00:49 | ER ---
Nurse's Notes [facility] Name: Jose A Goetz Jr Age: 39 yrs Sex: Male : 1980 Arrival Date: 03/04/2020 Time: 22:49 Bed 17 Private MD: Diagnosis: Displaced fracture of neck of fifth metacarpal bone, right hand Presentation: 03/04 23:02 Acuity: TIMMY 4 sg 23:02 Chief complaint: Patient states: I was working with my hands and hurt my finger, no sg other complaints at this time. Coronavirus screen: Client denies travel out of the [place] in the last 14 days. At this time, the client does not indicate any symptoms associated with coronavirus-19. Ebola Screen: Patient negative for fever greater than or equal to 101.5 degrees Fahrenheit, and additional compatible Ebola Virus Disease symptoms Patient denies exposure to infectious person. Patient denies travel to an Ebola-affected area in the 21 days before illness onset. No symptoms or risks identified at this time. Initial Sepsis Screen: Does the patient meet any 2 criteria? No. Patient's initial sepsis screen is negative. Does the patient have a suspected source of infection? No. Patient's initial sepsis screen is negative. Risk Assessment: Do you want to hurt yourself or someone else? Patient reports no desire to harm self or others. Onset of symptoms was March 04, 2020. Care prior to arrival: None. Transition of care: patient was not received from another setting of care. 23:02 Method Of Arrival: Ambulatory sg Triage Assessment: 23:30 Injury Description: swelling. wh Historical: - Allergies: 23:03 No Known Allergies; sg - Home Meds: 23:03 Xanax 2 mg Oral tab 1 tab twice a day [Active]; sg - PMHx: 23:03 Anxiety; sg - PSHx: 23:03 gastric sleeve; sg - Immunization history:: Adult Immunizations up to date. - Social history:: Smoking status: Patient denies any tobacco usage or history of. Screenin/22 00:00 Abuse screen: Denies threats or abuse. Denies injuries from another. Nutritional screening: No deficits noted. Tuberculosis screening: No symptoms or risk factors identified. Fall Risk None identified. Assessment: 03/04 23:20 General: Appears in no apparent distress. Behavior is calm, cooperative, appropriate wh for age. Pain: Complains of pain in right hand. Neuro: Level of Consciousness is awake, alert, obeys commands, Oriented to person, place, time, situation, Appropriate for age. Cardiovascular: Capillary refill < 3 seconds. Respiratory: Airway is patent Respiratory effort is even, unlabored, Respiratory pattern is regular, symmetrical. GI: Abdomen is flat, non-distended. : No signs and/or symptoms were reported regarding the genitourinary system. EENT: No signs and/or symptoms were reported regarding the EENT system. Derm: Skin is intact, is healthy with good turgor, Skin is pink, warm \T\ dry. normal. Musculoskeletal: Swelling present in right hand. 03/05 00:30 Reassessment: Patient appears in no apparent distress at this time. No changes from previously documented assessment. Patient and/or family updated on plan of care and expected duration. Pain level reassessed. Patient is alert, oriented x 3, equal unlabored respirations, skin warm/dry/pink. Vital Signs: 03/04 23:02 BP 142 / 80; Pulse 78; Resp 16; Temp 97.7; Pulse Ox 100% on R/A; Pain 4/10; sg 03/05 00:30 BP 138 / 74; Pulse 74; Resp 18; Pulse Ox 99% on R/A; ED Course: 03/04 22:49 Patient arrived in ED. ds1 23:02 Triage completed. sg 23:03 Arm band placed on. sg 23:07 Eric Law PA is PHCP. cp 23:07 Eric Stratton MD is Attending Physician. cp 23:30 Yissel Crenshaw, RN is Primary Nurse. 23:30 Patient has correct armband on for positive identification. Bed in low position. Call light in reach. Side rails up X 1. Pulse ox on. NIBP on. 03/05 00:48 Juan Ramon Gallegos MD is Referral Physician. cp 01:00 Orthoglass splint: Ulnar gutter/Boxer splint applied on right forearm. 01:19 No provider procedures requiring assistance completed. Patient did not have IV access during this emergency room visit. Administered Medications: 03/04 23:43 Drug: Ibuprofen 800 mg Route: PO; 03/05 00:52 Follow up: Response: No adverse reaction; Pain is decreased 00:29 Drug: Lidocaine (1 %) 1 application {Note: Administered by Provider.} Volume: 20 ml; Route: Infiltration; 00:29 Drug: Marcaine (0.5 %) 1 application {Note: Administered by Provider.} Volume: 10 ml; Route: Infiltration; Outcome: 00:49 Discharge ordered by MD. perez 01:19 Discharged to home ambulatory. 01:19 Condition: stable 01:19 Discharge instructions given to patient, Instructed on discharge instructions, follow up and referral plans. medication usage, POC Demonstrated understanding of instructions, follow-up care, medications, splint care, Prescriptions given X 1. 01:21 Patient left the ED. Signatures: Jac Gomes, RN RN Lizzy Garcia ds1 Eric Law PA PA cp Habalo, Winsy, RN RN
[2020-03-05 01:33] VITALS: TEMP 97.7
[2020-03-05 01:34] VITALS: BP 138/74; O2SAT 99
--- NOTE | 2020-03-05 08:47 | RAD REPORT ---
EXAM DESCRIPTION: RAD - Hand Right 3 View - 03/04/2020 11:56 pm CLINICAL HISTORY: Pain;Swelling COMPARISON: No comparisons FINDINGS: Mildly angulated fracture of the fifth metacarpal neck is seen. Moderate surrounding soft tissue swelling.
== END 2020-03-05 01:21 | disposition home or self-care (01) ==
LOC: ER 22:43
PROC: 2W3CX1Z Immobilization of Right Lower Arm using Splint (ICD-10-PCS; principal; 2020-03-05)
DX: S62.336A Displaced fracture of neck of fifth metacarpal bone, right hand, initial encounter for closed fracture (principal); Y04.2XXA Assault by strike against or bumped into by another person, initial encounter; Y93.9 Activity, unspecified; Y92.9 Unspecified place or not applicable; F41.9 Anxiety disorder, unspecified
CPT/HCPCS: 99284

== ENCOUNTER 2020-10-06 14:22 | Emergency (ER) | payer BC, SELFPAY ==
--- OUTSIDE RECORDS SUMMARY | 2020-10-06 14:25 | XMS REPORT | Continuity of Care Document ---
:1980 Author Organization [facility] t Address [address] [place] [address] Dr. Villatoro [address] [place] [id number] Care Team Providers Name Role Phone Unavailable Unavailable Unavailable Problems This patient has no known problems. Allergies, Adverse Reactions, Alerts This patient has no known allergies or adverse reactions. Medications This patient has no known medications. Procedures This patient has no known procedures. Results This patient has no known results.
--- NOTE | 2020-10-06 16:12 | EDPHYS ---
Physician Documentation [facility] Name: Jose A Goetz Jr Age: 39 yrs Sex: Male : 1980 Arrival Date: 10/06/2020 Time: 14:25 Bed Waiting Private MD: GUILLERMO Physician Eric Stratton HPI: 10/06 16:09 This 39 yrs old Male presents to ER via Ambulatory with complaints of Hives, kb Sore Throat, Pain All Over. 16:09 The patient presents with sore throat. The patient describes throat pain as constant. kb Onset: The symptoms/episode began/occurred 4 day(s) ago. Severity of symptoms: At their worst the symptoms were moderate, in the emergency department the symptoms are unchanged. Modifying factors: The symptoms are alleviated by nothing, the symptoms are aggravated by swallowing, Patient's oral intake status: good The patient has had contact with sick. Associated signs and symptoms: Pertinent positives: chills, Sore throat. The patient has not experienced similar symptoms in the past. The patient has not recently seen a physician. Patient reports sore throat, chills, body aches that started on Sunday. Also reports hives that started a week and a half ago that have not resolved. Significant other also has sore throat.. Historical: - Allergies: 14:29 No Known Allergies; sv - PMHx: 14:29 Anxiety; sv - Immunization history:: Client reports having NOT received the Covid vaccine. - Social history:: Smoking status: Patient denies any tobacco usage or history of. ROS: 16:09 Respiratory: Negative for shortness of breath, cough, wheezing, and pleuritic chest kb pain. 16:09 Constitutional: Positive for body aches, chills. 16:09 ENT: Positive for sore throat. 16:09 Skin: Positive for rash, diffusely. 16:09 All other systems are negative. Exam: 16:09 Constitutional: This is a well developed, well nourished patient who is awake, alert, kb and in no acute distress. Head/Face: Normocephalic, atraumatic. Respiratory: Respirations even and unlabored. No increased work of breathing, no retractions or nasal flaring. MS/ Extremity: Pulses equal, no cyanosis. Neurovascular intact. Full, normal range of motion. Neuro: Awake and alert, GCS 15, oriented to person, place, time, and situation. Moves all extremities. Normal gait. Psych: Awake, alert, with orientation to person, place and time. Behavior, mood, and affect are within normal limits. 16:09 ENT: Posterior pharynx: Airway: normal, Tonsils: bilaterally enlarged, with erythema, Uvula: normal, midline, swelling, that is moderate, erythema, that is moderate, exudate, is not appreciated. 16:09 Skin: rash a mild rash is noted, consistent with contact dermatitis, and is diffusely located. Vital Signs: 14:29 BP 129 / 66; Pulse 74; Resp 16; Temp 98.5; Pulse Ox 100% ; Weight 113.4 kg; Height 5 sv ft. 9 in. (175.26 cm); 14:29 Body Mass Index 36.92 (113.40 kg, 175.26 cm) sv MDM: 14:34 Patient medically screened. kb 16:11 Data reviewed: vital signs, nurses notes. Data interpreted: Pulse oximetry: on room air kb is 100 %. Interpretation: normal. Counseling: I had a detailed discussion with the patient and/or guardian regarding: the historical points, exam findings, and any diagnostic results supporting the discharge/admit diagnosis, lab results, the need for outpatient follow up, a family practitioner, to return to the emergency department if symptoms worsen or persist or if there are any questions or concerns that arise at home. 10/06 14:33 Order name: Strep kb 10/06 14:34 Order name: Group A Streptococcus Rapid Sc; Complete Time: 15:29 EDNH 10/06 15:16 Order name: Throat Culture EDNH 10/06 16:02 Order name: SARS-COV-2 RT PCR; Complete Time: 16:03 EDMS Administered Medications: No medications were administered Disposition: 10/07 14:49 Co-signature as Attending Physician, Eric Stratton MD I agree with the assessment and marvin plan of care. Disposition Summary: 10/06/20 16:11 Discharge Ordered Location: Home kb Condition: Stable kb Diagnosis - Acute tonsillitis, unspecified kb - Rash and other nonspecific skin eruption kb Followup: kb - With: Emergency Department - When: As needed - Reason: Worsening of condition Followup: kb - With: Private Physician - When: 2 - 3 days - Reason: Recheck today's complaints, Continuance of care, Re-evaluation by your physician Discharge Instructions: - Discharge Summary Sheet kb - Tonsillitis, [id number] kb - Rash, Adult, [id number] kb Forms: - Medication Reconciliation Form kb - Thank You Letter kb - Antibiotic Education kb - Prescription Opioid Use kb Prescriptions: - Amoxicillin 875 mg Oral Tablet - take 1 tablet by ORAL route every 12 hours for 10 days; 20 tablet; Refills: 0, kb Product Selection Permitted - Prednisone 20 mg Oral Tablet - take 1 tablet by ORAL route once daily for 5 days; 5 tablet; Refills: 0, kb Product Selection Permitted Signatures: Dispatcher [employer] EDJoy Banerjee, Rosenda Cano RN RN sv Anderson, Corey, MD MD cha Corrections: (The following items were deleted from the chart) 10/06 15:10 14:34 CORONAVIRUS+BRZ ordered. EDNH EDNH
--- NOTE | 2020-10-06 16:12 | ER ---
Nurse's Notes [facility] Name: Jose A Goetz Jr Age: 39 yrs Sex: Male : 1980 Arrival Date: 10/06/2020 Time: 14:25 Bed Waiting Private MD: Diagnosis: Acute tonsillitis, unspecified;Rash and other nonspecific skin eruption Presentation: 10/06 14:28 Chief complaint: Patient states: hives x 1.5 weeks, swollen tonsils, chills, body aches sv started Sunday. Coronavirus screen: Client denies travel out of the [place] in the last 14 days. At this time, the client does not indicate any symptoms associated with coronavirus-19. Ebola Screen: No symptoms or risks identified at this time. Onset: The symptoms/episode began/occurred gradually. Anaphylaxis evaluation, no signs or symptoms of anaphylaxis were noted. Risk Assessment: Do you want to hurt yourself or someone else? Patient reports no desire to harm self or others. Onset of symptoms was September 2020. 14:28 Method Of Arrival: Ambulatory sv 14:28 Acuity: TIMMY 4 sv 14:29 Initial Sepsis Screen: Does the patient meet any 2 criteria? No. Patient's initial sv sepsis screen is negative. Does the patient have a suspected source of infection? No. Patient's initial sepsis screen is negative. Triage Assessment: 14:28 General: Appears in no apparent distress. comfortable, Behavior is calm, cooperative, sv appropriate for age. Pain: Complains of pain in throat. Neuro: Level of Consciousness is awake, alert, obeys commands, Gait is steady. Respiratory: Respiratory effort is even, unlabored, Respiratory pattern is regular, symmetrical. Historical: - Allergies: 14:29 No Known Allergies; sv - PMHx: 14:29 Anxiety; sv - Immunization history:: Client reports having NOT received the Covid vaccine. - Social history:: Smoking status: Patient denies any tobacco usage or history of. Screenin:44 Abuse screen: Denies threats or abuse. Denies injuries from another. Nutritional sv screening: No deficits noted. Tuberculosis screening: No symptoms or risk factors identified. Fall Risk None identified. Assessment: 16:44 Reassessment: Patient appears in no apparent distress at this time. No changes from sv previously documented assessment. Patient and/or family updated on plan of care and expected duration. Pain level reassessed. Patient is alert, oriented x 3, equal unlabored respirations, skin warm/dry/pink. Vital Signs: 14:29 BP 129 / 66; Pulse 74; Resp 16; Temp 98.5; Pulse Ox 100% ; Weight 113.4 kg; Height 5 sv ft. 9 in. (175.26 cm); 14:29 Body Mass Index 36.92 (113.40 kg, 175.26 cm) sv ED Course: 14:25 Patient arrived in ED. as 14:29 Triage completed. sv 14:29 Arm band placed on. sv 14:33 Joy Soriano FNP-C is PHCP. kb 14:33 Eric Stratton MD is Attending Physician. kb 14:39 COVID swab sent to lab. Strep swab sent to lab. sv 16:44 Rosenda Meyers RN is Primary Nurse. sv 16:44 Patient has correct armband on for positive identification. sv 16:44 No provider procedures requiring assistance completed. Patient did not have IV access sv during this emergency room visit. Administered Medications: No medications were administered Outcome: 16:11 Discharge ordered by MD. kb 16:44 Patient left the ED. sv 16:44 Discharged to home ambulatory. sv 16:44 Condition: stable 16:44 Discharge instructions given to patient, Instructed on discharge instructions, follow up and referral plans. medication usage, Demonstrated understanding of instructions, follow-up care, medications, Prescriptions given X 2. Signatures: Joy Soriano FNP-C FNP-Rosenda Mcfarland RN RN Juanis Dias as Corrections: (The following items were deleted from the chart) 14:32 14:29 113.4 kg; Height 5 ft. 9 in.; BMI: 36.9; sv sv 14:33 14:29 Pulse 74bpm; Resp 16bpm; Pulse Ox 100%; Temp 98.5F; 113.4 kg; Height 5 ft. 9 in.; sv BMI: 36.9; sv
[2020-10-06 16:51] VITALS: BP 129/66; TEMP 98.5; O2SAT 100
== END 2020-10-06 16:44 | disposition home or self-care (01) ==
LOC: ER 14:22
DX: J03.90 Acute tonsillitis, unspecified (principal); R21 Rash and other nonspecific skin eruption; Z20.822 Contact with and (suspected) exposure to COVID-19
CPT/HCPCS: 87070; 87081; 99283; U0003

== ENCOUNTER 2021-08-04 10:56 | Inpatient (IN) | payer BC ==
--- OUTSIDE RECORDS SUMMARY | 2021-08-04 10:59 | XMS REPORT | Continuity of Care Document ---
:1980 Author Organization [facility] t Address [address] [place] [address] [address]. [address] [place] [address] Care Team Providers Name Role Phone GALINDO, BOB Attending Clinician Unavailable Evy Green DO Attending Clinician Bob GREEN Attending Clinician Unavailable Doctor Unassigned, Name Attending Clinician Unavailable Payers Payer Name Policy Type Policy Number Effective Date Expiration Date S [place] HIM [employer] BLUE [id number] 2019 ADVANTAGE HMO 00:00:00 Problems Condition Condition Condition Status Onset Resolution Last Treating Co mments Source Name Details Category Date Date Treatment Clinician Date No known No known Disease Unive rs active active ity of problems problems [facility] [place] [facility] Allergies, Adverse Reactions, Alerts Allergy Allergy Status Severity Reaction(s) Onset Inactive Treating Comm ents Source Name Type Date Date Clinician NO KNOWN Drug Active Univers ALLERGIE Class ity of S [facility] [place] [facility] Social History Social Habit Start Date Stop Date Quantity Comments Source [facility] to [facility]-CoV-2 [facility] Sm[facility] Status Start Date Stop Date Source [facility] Medications Ordered Filled Start Stop Current Ordering Indication Dosage Frequency Signature Comments Components Source Medication Medication Date Date Medication? Clinician (SIG) Name Name levoFLOXaci 2018-02 Yes [id number] 500mg Take 1 Univers n 1-15 tablet by ity of (LEVAQUIN) 00:00: mouth [place] 500 mg 00 every 24 Medical tablet (twenty-fo Branch ur) hours. traMADol 50 2018-02 Yes [id number] 50mg Take 1 Univers mg tablet 1-15 tablet by ity o f 00:00: mouth [place] 00 every 6 Medical (six) Branch hours as needed for Pain (scale 4-6). ibuprofen 2018-02 Yes [id number] 800mg Take 1 U nivers 800 mg 1-15 tablet by ity of tablet 00:00: mouth [place] 00 every 8 Medical (eight) Branch hours. levoFLOXaci 2018-02 Yes [id number] 500mg Take 1 Univers n 1-15 tablet by ity of (LEVAQUIN) 00:00: mouth [place] 500 mg 00 every 24 Medical tablet (twenty-fo Branch ur) hours. traMADol 50 2018-02 Yes [id number] 50mg Take 1 Univers mg tablet 1-15 tablet by ity o f 00:00: mouth [place] 00 every 6 Medical (six) Branch hours as needed for Pain (scale 4-6). ibuprofen 2018-02 Yes [id number] 800mg Take 1 U nivers 800 mg 1-15 tablet by ity of tablet 00:00: mouth [place] 00 every 8 Medical (eight) Branch hours. Vital Signs Vital Name Observation Time Observation Value Comments Source Systolic blood 2019-07-28 19:00:00 131 mm[Hg[facility] 2019-07-28 19:00:00 83 mm[Hg] Unive [facility] Heart rate 2019-07-28 19:00:00 69 /min [facility] Respiratory rate 2019-07-28 19:00:00 18 /min [facility] Oxygen saturation in 2019-07-28 19:00:00 99 /min [facility] Arterial blood by [facility] Pulse oximetry Branch Body temperature 2019-07-28 17:32:00 37.11 [facility] Body weight 2019-07-28 17:32:00 103.42 kg [facility] Systolic blood 2019-07-28 19:00:00 131 mm[Hg] Univer [facility] Diastolic blood 2019-07-28 19:00:00 83 mm[Hg] Unive [facility] Heart rate 2019-07-28 19:00:00 69 /min [facility] Respiratory rate 2019-07-28 19:00:00 18 /min [facility] Oxygen saturation in 2019-07-28 19:00:00 99 /min University Arterial blood by [facility] Pulse oximetry Branch Body temperature 2019-07-28 17:32:00 37.11 [facility] Body weight 2019-07-28 17:32:00 103.42 kg [facility] Medical [place] Procedures Procedure Date / Time Performed Performing Clinician Sourc e RAPID STREP SCREEN 2019-07-28 17:36:00 Evy Green [facility] FOR GROUP A Medical Branch COVID-19 (ID NOW 2019-07-28 17:36:00 Evy Green [facility] RAPID TESTING) Medical Branch NOTICE OF PRIVACY 2019-07-28 17:24:06 Doctor Unassigned, No [facility] PRACTICES Name [facility] CONSENT/REFUSAL FOR 2019-07-28 17:23:56 Doctor Unassigned, No [facility] DIAGNOSIS AND Name Medical [place] TREATMENT Encounters Start End Encounter Admission Attending Care Care Encounter Source Date/Time Date/Time Type Type Clinicians Facility Department ID 2019-08-06 2019-08-06 [id number] Univers 11:00:00 11:00:00 BOB yuen [facility] 2019-07-28 2019-07-28 [facility] [id number] Univers 12:30:00 14:05:00 Evy Vazquez [id number] ity [facility] [id number] [facility] [id number] [facility] 084 Branch 2019-07-28 2019-07-28 [facility] [id number] 12:30:00 14:05:00 Evy Vazquez [id number] [place] [id number] [place] [address] [id number] 2019-07-28 2019-07-28 Emergency [facility] E[facility] [id number] Univers 12:25:00 12:25:00 EVY yuen [facility] 2019-07-28 2019-07-28 Orders Doctor ROJAS [id number] Univers 00:00:00 00:00:00 Only Unassigned, MOHINDER [id number] ity of [facility] [id number] José Miguel as [id number] [facility] 009 Branch 2019-07-28 2019-07-28 Orders Doctor BOB [id number] 00:00:00 00:00:00 Only Unassigned, MOHINDER [id number] [facility] [id number] Results Test Description Test Time Test Comments Results Result Comments Source COVID-19 (ID NOW RAPID TESTING) 2019-07-28 18:13:00 Test Item Value Reference Range Interpretation Comme nts SARS-CoV-2 Rapid ID NOW (test code Positive Not Detected A = 86336-6) JIMMIE (test code = JIMMIE) ID NOW COVID-19 Assay is an isothermal nucleic acid amplification test intended for the qualitative detection of nucleic acid from SARS-CoV-2 viral RNA in nasopharyngeal ([employer]) specimens. It is used under Emergency Use Authorization (EUA) by FDA. The limit of detection (LOD) of the assay is 125 Genome Equivalents/mL. A positive result is indicative of the presence of SARS-CoV-2 RNA. ?Clinical correlation with patient history and other diagnostic information is necessary to determine patient infection status. A negative (Not Detected) result does not preclude SARS-CoV-2 infection. In patients with clinical symptoms and other tests that are consistent with SARS-CoV-2 infection, negative results should be treated as presumptive negative and a new specimen should be tested with alternative PCR molecular test. Invalid: Please collect a new specimen for repeat patient testing if clinically indicated. Lab Interpretation (test code = Abnormal 68719-5) [facility] [id number] 18:02:00 Test Item Value Reference Range Interpretation Comments Streptococcus pyogenes (group A) Negative Negative antigen (test code = 25208-3) Lab Interpretation (test code = Normal 49256-6) [facility]
[2021-08-04 11:26] LABS: Protime INR 1.09
[2021-08-04 11:26] LABS: Absolute Lymphocytes (CBC) 0.6 K/uL (0.7-4.9); Hematocrit 35.9 % (39.6-49.0); MCV 83.2 fL (80-100); MPV 10.3 fL (7.6-11.3); RBC Red Blood Cell Count 4.32 M/uL (4.33-5.43)
[2021-08-04 11:40] LABS: Albumin 3.8 g/dL (3.4-5.0); Potassium 3.8 mmol/L (3.5-5.1); Protein, Total 7.6 g/dL (6.4-8.2)
[2021-08-04] MEDS ORDERED: NA CHLORIDE 0.9% 1,000 ML ONE (12:16)
[2021-08-04 12:19] LABS: Blood Morphology Comment NOT SEEN (NOT SEEN); Platelet Estimate DECR; Platelets, Giant RARE
[2021-08-04] MEDS ORDERED: predniSONE 20 MG TAB ONE (12:50)
--- NOTE | 2021-08-04 13:16 | EDPHYS ---
Physician Documentation [facility] Name: Jose A Goetz Jr Age: 40 yrs Sex: Male : 1980 Arrival Date: 08/04/2021 Time: 10:59 Bed 17 Private MD: Allie Moran H ED Physician Vaughn Mckeon HPI: 08/04 13:17 This 40 yrs old Male presents to ER via Ambulatory with complaints of Abnormal kdr Lab Results. 13:17 Patient states that for the last week or 2, he has had bruising for no apparent reason. kdr He is also having blood from his mouth. He stated that occasionally he wakes up with blood on his pillow from his mouth. He denies blood in his stool or blood in his urine. He has not had any other recent illnesses. He did have a intermittent but persistent rash for the last 2 weeks. Patient is otherwise been in his usual state of health. He is nontoxic-appearing and does not require emergent intervention beyond transfusion of platelets and admission.. Onset: The symptoms/episode began/occurred gradually, 2 week(s) ago. Severity of symptoms: At their worst the symptoms were mild moderate just prior to arrival, in the emergency department the symptoms are unchanged. The patient has not experienced similar symptoms in the past. The patient has not recently seen a physician. Historical: - Allergies: 11:28 No Known Allergies; ld1 - PMHx: 11:28 Anxiety; ld1 - PSHx: 11:28 None; ld1 - Immunization history:: Adult Immunizations up to date, Client reports having NOT received the Covid vaccine. - Social history:: Smoking status: Patient denies any tobacco usage or history of. Patient/guardian denies using alcohol. ROS: 17:09 Constitutional: Negative for fever, chills, and weight loss, Eyes: Negative for injury, kdr pain, redness, and discharge, Neck: Negative for injury, pain, and swelling, Cardiovascular: Negative for chest pain, palpitations, and edema, Respiratory: Negative for shortness of breath, cough, wheezing, and pleuritic chest pain, Abdomen/GI: Negative for abdominal pain, nausea, vomiting, diarrhea, and constipation, Back: Negative for injury and pain, : Negative for injury, bleeding, discharge, and swelling, MS/Extremity: Negative for injury and deformity, Neuro: Negative for headache, weakness, numbness, tingling, and seizure activity. Psych: Negative for depression, anxiety, suicide ideation, homicidal ideation, and hallucinations, Allergy/Immunology: Negative for hives, rash, and allergies, Endocrine: Negative for neck swelling, polydipsia, polyuria, polyphagia, and marked weight changes, Hematologic/Lymphatic: Negative for swollen nodes, abnormal bleeding, and unusual bruising. 17:09 Skin: Positive for ecchymosis, Negative for abscesses, avulsion, cellulitis, diaphoresis, erythema, jaundice, laceration(s), lesions, pallor, puncture, rash, swelling, ulceration. Exam: 17:09 Constitutional: This is a well developed, well nourished patient who is awake, alert, kdr and in no acute distress. Head/Face: Normocephalic, atraumatic. Eyes: Pupils equal round and reactive to light, extra-ocular motions intact. Lids and lashes normal. Conjunctiva and sclera are non-icteric and not injected. Cornea within normal limits. Periorbital areas with no swelling, redness, or edema. Neck: Trachea midline, no thyromegaly or masses palpated, and no cervical lymphadenopathy. Supple, full range of motion without nuchal rigidity, or vertebral point tenderness. No Meningismus. Chest/axilla: Normal chest wall appearance and motion. Nontender with no deformity. No lesions are appreciated. Cardiovascular: Regular rate and rhythm with a normal S1 and S2. No gallops, murmurs, or rubs. Normal PMI, no JVD. No pulse deficits. Respiratory: Lungs have equal breath sounds bilaterally, clear to auscultation and percussion. No rales, rhonchi or wheezes noted. No increased work of breathing, no retractions or nasal flaring. Abdomen/GI: Soft, non-tender, with normal bowel sounds. No distension or tympany. No guarding or rebound. No evidence of tenderness throughout. Back: No spinal tenderness. No costovertebral tenderness. Full range of motion. MS/ Extremity: Pulses equal, no cyanosis. Neurovascular intact. Full, normal range of motion. Neuro: Awake and alert, GCS 15, oriented to person, place, time, and situation. Cranial nerves II-XII grossly intact. Motor strength 5/5 in all extremities. Sensory grossly intact. Cerebellar exam normal. Normal gait. Psych: Awake, alert, with orientation to person, place and time. Behavior, mood, and affect are within normal limits. 17:09 Skin: Appearance: ecchymosis, that are mild, and are scattered, and are diffusely located. Vital Signs: 11:27 BP 122 / 70; Pulse 61; Resp 18; Temp 98.6(TE); Pulse Ox 99% on R/A; Weight 120.2 kg; ld1 Height 5 ft. 11 in. (180.34 cm); Pain 0/10; 12:00 BP 114 / 59; Pulse 62; Resp 18; Pulse Ox 100% on R/A; ld1 13:11 BP 135 / 72; Pulse 58; Resp 18; Pulse Ox 100% on R/A; ld1 13:25 BP 118 / 77; Pulse 57; Resp 16; Temp 97.9(TE); Pulse Ox 100% on R/A; Pain 0/10; ld1 13:56 BP 110 / 75; Pulse 58; Resp 18; Pulse Ox 100% on R/A; ld1 14:08 BP 119 / 68; Pulse 57; Resp 18; Pulse Ox 100% on R/A; ld1 14:39 BP 109 / 59; Pulse 61; Resp 18; Pulse Ox 100% on R/A; Pain 0/10; ld1 15:43 BP 114 / 85; Pulse 72; Resp 18; Pulse Ox 99% on R/A; ld1 17:58 BP 118 / 76; Pulse 80; Resp 18; Pulse Ox 99% on R/A; Pain 0/10; ld1 11:27 Body Mass Index 36.96 (120.20 kg, 180.34 cm) ld1 MDM: 13:16 Patient medically screened. kdr 17:09 Data reviewed: vital signs, nurses notes, lab test result(s). Counseling: I had a kdr detailed discussion with the patient and/or guardian regarding: the historical points, exam findings, and any diagnostic results supporting the discharge/admit diagnosis, lab results, the need for further work-up and treatment in the hospital. Physician consultation: Laurence Mendoza MD regarding admission, consult, patient's condition, need to evaluate the patient as soon as possible, Patient will need platelet transfusion and steroids. Patient will be seen by the on-call oncologist. 08/04 11:02 Order name: CBC with Diff kdr 08/04 11:02 Order name: Comprehensive Metabolic Panel; Complete Time: 11:54 kdr 08/04 11:02 Order name: PT-INR; Complete Time: 11:54 kdr 08/04 11:02 Order name: Type And Screen kdr 08/04 12:19 Order name: Manual Differential EDMS 08/04 12:21 Order name: ABO/RH no charge EDMS 08/04 12:23 Order name: Platelets, Leukored Pheresis EDMS 08/04 13:08 Order name: COVID-19 SARS RT PCR (Document "Date of Onset" if Symptomatic) kj1 08/04 16:04 Order name: Protime (+INR) EDMS 08/04 16:04 Order name: PTT, Activated Partial Thromb EDMS 08/04 16:04 Order name: CBC with Automated Diff EDMS 08/04 16:04 Order name: CONS Physician Consult EDMS 08/04 16:04 Order name: Regular EDMS 08/04 16:04 Order name: CBC with Automated Diff EDMS 08/04 16:04 Order name: CBC with Automated Diff EDMS 08/04 16:04 Order name: CBC with Automated Diff EDMS 08/04 16:04 Order name: Comprehensive Metabolic Panel EDMS 08/04 16:04 Order name: Comprehensive Metabolic Panel EDMS 08/04 16:06 Order name: CBC without Diff EDMS 08/04 17:21 Order name: Lactic Dehydrogenase EDMS Administered Medications: 13:12 Drug: predniSONE 60 mg Route: PO; ld1 Disposition Summary: 08/04/21 13:16 Hospitalization Ordered Hospitalization Status: Inpatient Admission kdr Provider: Ila More kdr Location: Telemetry/MedSurg (Inpatient) kdr Condition: Fair kdr Problem: new kdr Symptoms: have improved kdr Bed/Room Type: Standard kdr Room Assignment: 217(08/04/21 16:57) ss Diagnosis - Idiopathic Thrombocytopenia kdr Forms: - Medication Reconciliation Form kdr - SBAR form kdr Signatures: Dispatcher [employer] EDMS Vaughn Mckeon MD MD kdr Merari Garcia RN RN ss Quynh Dean RN RN ld1 Corrections: (The following items were deleted from the chart) 16:57 13:16 kdr ss
--- NOTE | 2021-08-04 13:16 | ER ---
Nurse's Notes [facility] Name: Jose A Goetz Jr Age: 40 yrs Sex: Male : 1980 Arrival Date: 08/04/2021 Time: 10:59 Bed 17 Private MD: Allie Moran H Diagnosis: Idiopathic Thrombocytopenia Presentation: 08/04 11:27 Chief complaint: Patient states: I went to the doctor because I have been bruising ld1 easily. Pt received blood work and was instructed by doctor to come to ER due to abnormal lab results. Coronavirus screen: At this time, the client does not indicate any symptoms associated with coronavirus-19. Ebola Screen: No symptoms or risks identified at this time. Initial Sepsis Screen: Does the patient meet any 2 criteria? No. Patient's initial sepsis screen is negative. Does the patient have a suspected source of infection? No. Patient's initial sepsis screen is negative. Risk Assessment: Do you want to hurt yourself or someone else? Patient reports no desire to harm self or others. Onset of symptoms was August 04, 2021 at 11:28. 11:27 Method Of Arrival: Ambulatory ld1 11:27 Acuity: TIMMY 3 ld1 Triage Assessment: 11:28 General: Appears in no apparent distress. comfortable, Behavior is calm, cooperative, ld1 appropriate for age. Pain: Denies pain. EENT: No signs and/or symptoms were reported regarding the EENT system. Neuro: Level of Consciousness is awake, alert, obeys commands, Oriented to person, place, time, situation. Cardiovascular: Capillary refill < 3 seconds Patient's skin is warm and dry. Respiratory: Airway is patent Respiratory effort is even, unlabored. GI: Abdomen is round non-distended. : No signs and/or symptoms were reported regarding the genitourinary system. Derm: No signs and/or symptoms reported regarding the dermatologic system. Derm: Reports BRUISING. Musculoskeletal: No signs and/or symptoms reported regarding the musculoskeletal system. Historical: - Allergies: 11: No Known Allergies; ld1 - PMHx: : Anxiety; ld1 - PSHx: 11: None; ld1 - Immunization history:: Adult Immunizations up to date, Client reports having NOT received the Covid vaccine. - Social history:: Smoking status: Patient denies any tobacco usage or history of. Patient/guardian denies using alcohol. Screenin:29 Abuse screen: Denies threats or abuse. Denies injuries from another. Nutritional ld1 screening: No deficits noted. Nutritional screening: No deficits noted. Tuberculosis screening: No symptoms or risk factors identified. Fall Risk None identified. Assessment: 11:29 Reassessment: See triage assessment. ld1 13:28 Reassessment: Patient appears in no apparent distress at this time. Patient and/or ld1 family updated on plan of care and expected duration. Pain level reassessed. Patient is alert, oriented x 3, equal unlabored respirations, skin warm/dry/pink. Patient denies pain at this time. 14:40 Reassessment: Patient appears in no apparent distress at this time. Patient and/or ld1 family updated on plan of care and expected duration. Pain level reassessed. Patient denies pain at this time. 17:58 Reassessment: Patient appears in no apparent distress at this time. Patient and/or ld1 family updated on plan of care and expected duration. Pain level reassessed. Patient is alert, oriented x 3, equal unlabored respirations, skin warm/dry/pink. Patient denies pain at this time. Vital Signs: 11:27 BP 122 / 70; Pulse 61; Resp 18; Temp 98.6(TE); Pulse Ox 99% on R/A; Weight 120.2 kg; ld1 Height 5 ft. 11 in. (180.34 cm); Pain 0/10; 12:00 BP 114 / 59; Pulse 62; Resp 18; Pulse Ox 100% on R/A; ld1 13:11 BP 135 / 72; Pulse 58; Resp 18; Pulse Ox 100% on R/A; ld1 13:25 BP 118 / 77; Pulse 57; Resp 16; Temp 97.9(TE); Pulse Ox 100% on R/A; Pain 0/10; ld1 13:56 BP 110 / 75; Pulse 58; Resp 18; Pulse Ox 100% on R/A; ld1 14:08 BP 119 / 68; Pulse 57; Resp 18; Pulse Ox 100% on R/A; ld1 14:39 BP 109 / 59; Pulse 61; Resp 18; Pulse Ox 100% on R/A; Pain 0/10; ld1 15:43 BP 114 / 85; Pulse 72; Resp 18; Pulse Ox 99% on R/A; ld1 17:58 BP 118 / 76; Pulse 80; Resp 18; Pulse Ox 99% on R/A; Pain 0/10; ld1 11:27 Body Mass Index 36.96 (120.20 kg, 180.34 cm) ld1 ED Course: 10:59 Patient arrived in ED. mr 10:59 Allie Moran DO is Private Physician. mr 11:01 Vaughn Mckeon MD is Attending Physician. kdr 11:27 Quynh Dean, RN is Primary Nurse. ld1 11:28 Triage completed. ld1 11:28 Arm band placed on right wrist. ld1 11:29 Patient has correct armband on for positive identification. Placed in gown. Bed in low ld1 position. Call light in reach. Side rails up X2. quality assurance monitor body on. Pulse ox on. NIBP on. Door closed. Noise minimized. 11:29 No provider procedures requiring assistance completed. Inserted saline lock: 20 gauge ld1 in right antecubital area, using aseptic technique. Blood collected. 13:12 COVID-19 SARS RT PCR (Document "Date of Onset" if Symptomatic) Sent. ld1 13:12 Platelets, Leukored Pheresis Sent. ld1 13:14 Ila More MD is Hospitalizing Provider. kdr 13:20 COVID-19 SARS RT PCR (Document "Date of Onset" if Symptomatic) Sent. ld1 17:58 Patient admitted, IV remains in place. ld1 Administered Medications: 13:12 Drug: predniSONE 60 mg Route: PO; ld1 Medication: 11:29 VIS not applicable for this client. ld1 Outcome: 13:16 Decision to Hospitalize by Provider. kdr 17:58 Admitted to Med/surg accompanied by tech, via wheelchair, room 217, with chart, Report ld1 called to BALTA Turner 17:58 Condition: stable 17:58 Instructed on the need for admit. 17:58 Patient left the ED. ld1 Signatures: Vaughn Mckeon MD MD [facility] Shahla Rey mr Quynh Dean, RN RN ld1
[2021-08-04] MEDS ORDERED: ACETAMINOPHEN 500 MG TAB PO PRN (15:58)
[2021-08-04] MEDS ORDERED: ONDANSETRON 4 MG/2 ML VIAL IV PRN (15:58)
[2021-08-04] MEDS ORDERED: MORPHINE 2 MG/ML SYR IV PRN (15:58)
--- NOTE | 2021-08-04 16:19 | P.HP ---
Certification for Inpatient Patient admitted to: Inpatient With expected LOS: >2 Midnights Patient will require the following post-hospital care: None Practitioner: I am a practitioner with admitting privileges, knowledge of patient current condition, hospital course, and medical plan of care. Services: Services provided to patient in accordance with Admission requirements found in Title 42 Section 412.3 of the Code of Federal Regulations Patient History Date of Service: 08/04/21 Reason for admission: bruises History of Present Illness: 40-year-old male with past medical history of anxiety, obesity not on any medication presented at his primary care office today because of recurrent bruising since the last 3 weeks. Patient has been noticing patches of bruises and petechia on his skin especially over the lower leg and in his abdominal wall. He was seen by his PCP a has routine blood work done I was noted with a platelet count of 1000. He was called to come to the emergency room. On arrival in the emergency room the platelet count on repeat was 3000. WBC of 3.6 and hemoglobin of 11.8. Patient denies any new fever, chills. He denies any recent hematuria, hematuria took easier or hematemesis. He admits to mild gum bleeding. He states he has had previous surgeries including incisional drainage of a thigh abscess as well as laparoscopic gastric sleeve 7 years ago that were not complicated by bleeding. There is no family history for bleed on the maternal side but he does not know of any paternal side medical history. Review of his old records show his platelet was be running from 200-2 20 during his previous admission with the latest of 220 in 2018. Patient received 1 unit of platelets while in the emergency room. He feels fine with no itching now. He is being admitted for significant thrombocytopenia. Hematology service has been consulted in the ER. Allergies No Known Allergies Allergy (Unverified 04/23/14 12:19) Home Medications: Doxycycline Hyclate 100 mg PO BID #20 tablet 04/24/14 Smz./Tmp. [Bactrim Ds 800 MG/160 MG*] 1 tab PO BID #20 tab 04/24/14 Tramadol HCl [Ultram] 50 mg PO BID #20 tablet 04/24/14 - Past Medical/Surgical History Diabetic: No -: sleep apnea -: Obesity -: Anxiety -: Gastric sleeve in 2014 - Social History Smoking Status: Never smoker Alcohol use: Yes CD- Drugs: Yes Caffeine use: No Place of Residence: Home Review of Systems Integumentary: Bruising Physical Examination - Physical Exam General: Alert, Oriented x3, Obese HEENT: Atraumatic, Normocephalic, PERRLA Neck: Supple, 2+ carotid pulse no bruit, JVD not distended Respiratory: Clear to auscultation bilaterally, Normal air movement Cardiovascular: No edema, Normal pulses, Regular rate/rhythm, Normal S1 S2 Gastrointestinal: Non-distended, No tenderness Integumentary: Other (Few bruises over bilateral lower extremity,, right flank) Neurological: Normal gait, Normal strength at 5/5 x4 extr - Studies Laboratory Data (last 24 hrs) 08/04/21 11:20: WBC 3.6 L, Hgb 11.8 L, Hct 35.9 L, Plt Count 3 L* D 08/04/21 11:15: PT 12.0, INR 1.09 08/04/21 11:15: Sodium 137, Potassium 3.8, BUN 13, Creatinine 0.63, Glucose 98, Total Bilirubin 2.0 H, AST 25, ALT 29, Alkaline Phosphatase 83 Assessment and Plan - Problems (Diagnosis) (1) Thrombocytopenia Current Visit: Yes Status: Acute - Plan Impression Presumed idiopathic thrombocytopenic purpura/ITP Obesity Plan We will admit patient to observation Will obtain repeat platelet counts post 1 unit platelet transfusion Monitor daily CBC Start IV steroids 1 g/day for now for 3 days, IVIG not available Hematology/oncology consult Will monitor for recurrent spontaneous bleeding Target platelet count above 30,000 prior to discharge SCDs for DVT prophylaxis Will obtain serum KRUPA/ANCA/haptoglobin/LDH - Advance Directives Does patient have a Living Will: No Does patient have a Durable POA for Healthcare: No Physician Review: Patient Assessed, Agree with Above Assessment and Plan Physician Review Additional Text: Impression Presumed idiopathic thrombocytopenic purpura/ITP Obesity Plan We will admit patient to observation Will obtain repeat platelet counts post 1 unit platelet transfusion Monitor daily CBC Start IV steroids 1 g/day for now for 3 days, IVIG not available Hematology/oncology consult Will monitor for recurrent spontaneous bleeding Target platelet count above 30,000 prior to discharge SCDs for DVT prophylaxis Will obtain serum KRUPA/ANCA/haptoglobin/LDH Critical Care: No Time Spent Managing Pts Care (In Minutes): 70
[2021-08-04 16:39] LABS: MCV 83.1 fL (80-100); MPV 9.6 fL (7.6-11.3); RBC Red Blood Cell Count 4.45 M/uL (4.33-5.43)
[2021-08-04] MEDS: METHYLPRED NA SUC 1,000 MG in NA CHLORIDE 0.9% 100 ML IV SCH (17:00)
[2021-08-04 17:35] LABS: Protime INR 1.04
[2021-08-04] MEDS ORDERED: NA CHLORIDE 0.9% 250 ML IV SCH (22:00)
[2021-08-05 05:57] LABS: Absolute Lymphocytes (CBC) 0.2 K/uL (0.7-4.9); Lymphocytes % 3.9 % (15.3-44.8); MPV 9.5 fL (7.6-11.3); RBC Red Blood Cell Count 4.27 M/uL (4.33-5.43)
[2021-08-05 06:12] LABS: Albumin 3.7 g/dL (3.4-5.0); Bilirubin Total 1.6 mg/dL (0.2-1.0); Potassium 3.8 mmol/L (3.5-5.1); Protein, Total 7.6 g/dL (6.4-8.2)
[2021-08-05] MEDS: METHYLPRED NA SUC 1,000 MG in NA CHLORIDE 0.9% 100 ML IV SCH (09:06)
[2021-08-05] MEDS ORDERED: HYDRALAZINE HCL 20 MG/ML VIAL IV PRN (11:15)
[2021-08-05 11:53] LABS: MCV 82.3 fL (80-100); RBC Red Blood Cell Count 4.26 M/uL (4.33-5.43)
--- NOTE | 2021-08-05 13:25 | P.PN ---
Subjective Date of Service: 08/05/21 Chief Complaint: bruises Subjective: No new changes, Improving Physical Examination - Vital Signs Temperature: 98.5 F Blood Pressure: 125/59 Pulse: 78 Respirations: 18 Pulse Ox (%): 98 Assessment And Plan - Current Problems (Diagnosis) (1) Thrombocytopenia Current Visit: Yes Status: Acute Physician Review: Patient Assessed, Agree with Above Assessment and Plan Physician Review Additional Text: 08/05/21 13:25 Physical Exam General: Alert, Oriented x3, Obese HEENT: Atraumatic, Normocephalic, PERRLA Neck: Supple, 2+ carotid pulse no bruit, JVD not distended Respiratory: Clear to auscultation bilaterally, Normal air movement Cardiovascular: No edema, Normal pulses, Regular rate/rhythm, Normal S1 S2 Gastrointestinal: Non-distended, No tenderness Integumentary: Other (Few bruises over bilateral lower extremity,, right flank) Neurological: Normal gait, Normal strength at 5/5 x4 extr Impression Presumed idiopathic thrombocytopenic purpura/ITP Obesity Plan Platelet count improving, status post 2 units platelets transfusion yeste rday(no improvement with first unit but improved after second unit and IV steroids) -Further improvement in platelet count to 14,000 today Continue IV steroids 1 g/day today and in a.m. IVIG not available Hematology/oncology consult obtained, plan to do prednisone 1 mg/kg with PPI at discharge Continue current regimen Can discharge in a.m. if stable or improving platelet count SCDs for DVT prophylaxis
[2021-08-05] MEDS: PANTOPRAZOLE 40MG TABLET PO SCH (13:58)
[2021-08-05] MEDS: DIPHENHYDRAMINE 25 MG TAB/CAP PO SCH (14:21)
[2021-08-05] MEDS: ACETAMINOPHEN 325 MG TABLET PO SCH (14:21)
[2021-08-05] MEDS ORDERED: IMMUNE GLOBULIN IV ONE (15:00)
[2021-08-05] MEDS ORDERED: MALTOSE IV ONE (15:00)
--- NOTE | 2021-08-05 16:02 | P.DS ---
Admission Date: 08/04/21 Discharge Date: 08/05/21 Disposition: ROUTINE DISCHARGE Reason for Admission: bruises - Problems (1) Thrombocytopenia Current Visit: Yes Status: Acute Brief History of Present Illness: 40-year-old male with past medical history of anxiety, obesity not on any medication presented at his primary care office today because of recurrent bruising since the last 3 weeks. Patient has been noticing patches of bruises and petechia on his skin especially over the lower leg and in his abdominal wall. He was seen by his PCP a has routine blood work done I was noted with a platelet count of 1000. He was called to come to the emergency room. On arrival in the emergency room the platelet count on repeat was 3000. WBC of 3.6 and hemoglobin of 11.8. Patient denies any new fever, chills. He denies any recent hematuria, hematuria took easier or hematemesis. He admits to mild gum bleeding. He states he has had previous surgeries including incisional drainage of a thigh abscess as well as laparoscopic gastric sleeve 7 years ago that were not complicated by bleeding. There is no family history for bleed on the maternal side but he does not know of any paternal side medical history. Review of his old records show his platelet was be running from 200-2 20 during his previous admission with the latest of 220 in 2018. Patient received 1 unit of p latelets while in the emergency room. He feels fine with no itching now. He is being admitted for significant thrombocytopenia. Hematology service has been consulted in the ER. Hospital Course: Patient was admitted for thrombocytopenia with counts as low as 3K. He received 1 unit of platelet with no significant change in platelet count. He was started on IV 1 g steroids and receiving second unit with subsequent improvement to 11,000. The IV steroids were continued for total of 3 days and switch to 1 mg/kg prednisone. Evaluated by oncology and recommended follow-up as outpatient. Patient will be discharged home on prednisone as well as Protonix Vital Signs/Physical Exam: Temp Pulse Resp BP Pulse Ox 98.5 F 78 18 125/59 L 98 08/05/21 13:25 08/05/21 13:25 08/05/21 13:25 08/05/21 13:25 08/05/21 13:25 General: Alert, In no apparent distress, Oriented x3, Obese HEENT: Atraumatic, Normocephalic, PERRLA Neck: Supple, 2+ carotid pulse no bruit Respiratory: Clear to auscultation bilaterally, Normal air movement Gastrointestinal: Normal bowel sounds, Soft and benign, Non-distended Integumentary: Other (fading multiple area of bruising/ecchymosis) Laboratory Data at Discharge: WBC 8.1 K/uL (4.3-10.9) D 08/05/21 11:41 Hgb 11.8 g/dL (13.6-17.9) L 08/05/21 11:41 Hct 35.0 % (39.6-49.0) L 08/05/21 11:41 Plt Count 14 K/uL (152-406) L* D 08/05/21 11:41 PT 11.4 SECONDS (9.5-12.5) 08/04/21 17:13 INR 1.04 08/04/21 17:13 APTT 33.2 SECONDS (24.3-36.9) 08/04/21 17:13 Sodium 138 mmol/L (136-145) 08/05/21 05:13 Potassium 3.8 mmol/L (3.5-5.1) 08/05/21 05:13 BUN 16 mg/dL (7-18) 08/05/21 05:13 Creatinine 0.64 mg/dL (0.55-1.3) 08/05/21 05:13 Glucose 163 mg/dL (74-106) H 08/05/21 05:13 Total Bilirubin 1.6 mg/dL (0.2-1.0) H 08/05/21 05:13 AST 17 U/L (15-37) 08/05/21 05:13 ALT 28 U/L (12-78) 08/05/21 05:13 Alkaline Phosphatase 84 U/L (45-117) 08/05/21 05:13 Home Medications: Pantoprazole [Protonix Tab*] 40 mg PO DAILY #30 tab 08/05/21 predniSONE [Prednisone*] 100 mg PO DAILY #7 tab 08/05/21 New Medications: predniSONE [Prednisone*] 100 mg PO DAILY #7 tab Pantoprazole [Protonix Tab*] 40 mg PO DAILY #30 tab Followup: Allie Moran DO, DO [Primary Care Provider] - Laurence Rivera MD [ACTIVE - CAN ADMIT] - (follow up on Sunday.) Time spent managing pt's care (in minutes): 35
[2021-08-05 22:54] VITALS: BMI 35.6
--- NOTE | 2021-08-06 00:33 | CON ---
Reason For Consultation: The patient consulted for thrombocytopenia. History Of Present Illness: Mr. Elizabeth is a 40-year-old male with no significant prior history except for obesity who presented to his PCP two days ago with complaints of bruising all over the body and gum bleeding. He says he noticed the bruises approximately 2 weeks ago, they continued to worsen and extend all over the body. He noted some gum bleeds within the past week. He saw Dr. Moran and a CBC was done which reportedly showed a platelet count of 1000. He was asked to go to the emergency room yesterday where his platelet count was repeated and it was 3000. He was hospitalized for treatment and evaluation of thrombocytopenia. He denies any recent cough, cold, or upper respiratory symptoms. He denies any history of fever or night sweats. There is no history of bleeding from the rectum, hematuria, or melena. He notes no change in his appetite or energy. He denies any headache, dizziness, or diplopia. No history of chest pain, shortness of breath, or hemoptysis. Since his hospitalization yesterday, he has received Solu-Medrol 1 g IV yesterday as well as today. He has also received 2 units of single donor platelets, the first unit did not increase his platelet count significantly, it was still at 3000, however, following transfusion of the second unit, his platelet count was up to 11,000 this morning and 40531 six hours later. He says his gum bleeding has stopped and he has not noted any new red bruises. Past Medical History: Significant for morbid obesity, weight up to 400 pounds at 1 point. Past Surgical History: Gastric sleeve in 2019 Medications: He does not take routine medications at home. In the hospital, he is currently on: 1. Solu-Medrol 1 g IV daily. 2. Pantoprazole 40 mg p.o. daily. 3. Tylenol Extra Strength one tablet q.6 hours p.r.n. for pain. Allergies: HE HAS NO KNOWN DRUG ALLERGIES. Social History: He currently lives with his parents and is an only child. Denies any family history of immune disorders or hematological disorders in his parents or immediate family. He has no children. His girlfriend is with the first child. He denies any history of smoking, admits to heavy drinking in the past, he says he is currently on parole and does not drink alcohol at all. Physical Examination: Vital Signs: Mr. Goetz has been afebrile since admission. T-max was 98.6 on admission and 98.5 at noon today, pulse 78 per minute, respirations 18 per minute. Blood pressure has been 125/59, saturating at 98% on room air. He is in no pain. General: Reveals an obese man, in no acute distress. Skin: Reveals extensive bruising and petechiae all over the body, especially in the arms and lower extremities. The bruises are in all stages of resolution. He also has extensive tattoos on his arms. HEENT: Reveals bilaterally equal pupils, responding to light equally. Oral examination reveals no petechiae or mucosal bleeding. Lymph Node: Survey reveals no evidence of palpable adenopathy in the neck, axilla, or groin. Chest: Clear to auscultation with no rales or rhonchi heard. Heart: Sounds reveal normal S1, S2. No gallops or murmurs. Abdomen: Obese. Liver and spleen are not palpable. Bowel sounds are present. Neurologic: Completely alert and oriented, with no acute deficits. Laboratory Data: From this morning reveals a white count of 8.1000, hemoglobin 11.8, hematocrit 35, platelet count of 14,000. Sedimentation rate was sent and was 33. PT, PTT were normal. Chemistries revealed blood sugar of 163 this morning at 5 a.m., on steroids. LDH was 230. CRP was less than 2.9. Assessment And Plan: 1. Thrombocytopenia. This is most likely an immune thrombocytopenia, however, we will rule out B12 and folic acid deficiency, given the gastric sleeve, human immunodeficiency virus and hepatitis C and other secondary causes of thrombocytopenia. We would suggest treatment for presumptive idiopathic thrombocytopenic purpura as follows. a. Discontinue Solu-Medrol. b. We will start on prednisone 100 mg p.o. daily from a.m. tomorrow and continue on it, till it could be tapered as an outpatient. c. IVIG 1 g/kg daily x2, starting today. I had an extensive discussion with the patient who has been reading up on thrombocytopenia and on idiopathic thrombocytopenic purpura. I stressed the need for regular followup through the clinic for titration of the steroids and for management of any relapses. We discussed that this idiopathic thrombocytopenic purpura is an autoimmune condition, usually isolated but sometimes in the presence of other autoimmune disease. Workup is in process to rule out an underlying autoimmune disease. 2. Obesity. We discussed that prednisone can cause significant weight gain as well as other side effects such as elevated blood sugars and blood pressure in the short term. A strict low carbohydrate, high protein and low calorie diet was discussed with the patient who is motivated to lose weight. You may discharge the patient, if his platelet count is consistently more than [id number] over a 24 hour period. I will follow up with him in clinic, either Sunday or Sunday to recheck his blood counts and discuss results as well as further management. Thank you for asking us to participate in his care. AMANDEEP/LAURI Voice ID: [id number] Report ID: [id number] AIMEE
[2021-08-06 05:47] LABS: Absolute Lymphocytes (CBC) 0.5 K/uL (0.7-4.9); Hematocrit 29.8 % (39.6-49.0); Lymphocytes % 4.5 % (15.3-44.8); MCV 81.9 fL (80-100); RBC Red Blood Cell Count 3.64 M/uL (4.33-5.43)
[2021-08-06] MEDS: PANTOPRAZOLE 40MG TABLET PO SCH (08:00)
[2021-08-06] MEDS ORDERED: predniSONE 20 MG TAB PO SCH (09:00)
--- NOTE | 2021-08-06 10:47 | P.DS ---
Admission Date: 08/04/21 Discharge Date: 08/06/21 Disposition: ROUTINE DISCHARGE Reason for Admission: bruises Consultations: Hematology Brief History of Present Illness: 10-year-old male with past medical history of anxiety, obesity not on any medication presented at his primary care office today because of recurrent bruising since the last 3 weeks. Patient has been noticing patches of bruises and petechia on his skin especially over the lower leg and in his abdominal wall. He was seen by his PCP a has routine blood work done I was noted with a platelet count of 1000. He was called to come to the emergency room. On arriv al in the emergency room the platelet count on repeat was 3000. WBC of 3.6 and hemoglobin of 11.8. Patient denies any new fever, chills. He denies any recent hematuria, hematuria took easier or hematemesis. He admits to mild gum bleeding. He states he has had previous surgeries including incisional drainage of a thigh abscess as well as laparoscopic gastric sleeve 7 years ago that were not complicated by bleeding. There is no family history for bleed on the maternal side but he does not know of any paternal side medical history. Review of his old records show his platelet was be running from 200-2 20 during his previous admission with the latest of 220 in 2018. Patient received 1 unit of platelets while in the emergency room. He feels fine with no itching now. He is being admitted for significant thrombocytopenia. Hematology service has been consulted in the ER. Hospital Course: Patient was admitted for thrombocytopenia with counts as low as 3K. He received 1 unit of platelet with no significant change in platelet count. He was started on IV 1 g steroids and receiving second unit with subsequent improvement to 11,000. The IV steroids were continued for total of 3 days and switch to 1 mg/kg prednisone. Evaluated by oncology and recommended follow-up as outpatient. Patient will be discharged home on prednisone as well as Protonix Vital Signs/Physical Exam: Temp Pulse Resp BP Pulse Ox 97.8 F 63 18 104/58 L 99 08/06/21 08:00 08/06/21 08:00 08/06/21 08:00 08/06/21 08:00 08/06/21 08:00 General: Alert, Oriented x3 HEENT: Atraumatic, Normocephalic Neck: Supple Respiratory: Normal air movement Cardiovascular: Regular rate/rhythm, Normal S1 S2 Gastrointestinal: Soft and benign Musculoskeletal: No swelling Laboratory Data at Discharge: WBC 10.5 K/uL (4.3-10.9) D 08/06/21 05:29 Hgb 10.4 g/dL (13.6-17.9) L 08/06/21 05:29 Hct 29.8 % (39.6-49.0) L 08/06/21 05:29 Plt Count 59 K/uL (152-406) L D 08/06/21 05:29 PT 11.4 SECONDS (9.5-12.5) 08/04/21 17:13 INR 1.04 08/04/21 17:13 APTT 33.2 SECONDS (24.3-36.9) 08/04/21 17:13 Sodium 138 mmol/L (136-145) 08/05/21 05:13 Potassium 3.8 mmol/L (3.5-5.1) 08/05/21 05:13 BUN 16 mg/dL (7-18) 08/05/21 05:13 Creatinine 0.64 mg/dL (0.55-1.3) 08/05/21 05:13 Glucose 163 mg/dL (74-106) H 08/05/21 05:13 Total Bilirubin 1.6 mg/dL (0.2-1.0) H 08/05/21 05:13 AST 17 U/L (15-37) 08/05/21 05:13 ALT 28 U/L (12-78) 08/05/21 05:13 Alkaline Phosphatase 84 U/L (45-117) 08/05/21 05:13 Home Medications: Pantoprazole [Protonix Tab*] 40 mg PO DAILY #30 tab 08/05/21 predniSONE [Prednisone*] 100 mg PO DAILY #7 tab 08/05/21 New Medications: predniSONE [Prednisone*] 100 mg PO DAILY #7 tab Pantoprazole [Protonix Tab*] 40 mg PO DAILY #30 tab Diet: Regular Followup: Allie Moran DO, DO [Primary Care Provider] - Laurence Rivera MD [ACTIVE - CAN ADMIT] - (follow up on Sunday.)
[2021-08-06] MEDS: ACETAMINOPHEN 325 MG TABLET PO SCH (14:25)
[2021-08-06] MEDS: DIPHENHYDRAMINE 25 MG TAB/CAP PO SCH (14:26)
[2021-08-06] MEDS ORDERED: MALTOSE IV ONE (15:00)
[2021-08-06] MEDS ORDERED: IMMUNE GLOBULIN IV ONE (15:00)
[2021-08-06 16:09] VITALS: BP 124/59; TEMP 97.9
[2021-08-06 16:33] VITALS: O2SAT 100
[2021-08-08 16:13] LABS: HIV AG/AB 4TH GEN Reactive (Non-reactive)
== END 2021-08-06 20:00 | disposition home or self-care (01) | DRG 813 ==
LOC: ER 10:56 → ERHOLD 16:00 → 2ND 17:33
PROVIDERS: ADMIT Internal Medicine; ATTEND Internal Medicine
PROC: 30233R1 Transfusion of Nonautologous Platelets into Peripheral Vein, Percutaneous Approach (ICD-10-PCS; principal; 2021-08-04)
DX: D69.3 Immune thrombocytopenic purpura (principal); E66.01 Morbid (severe) obesity due to excess calories; Z68.35 Body mass index [BMI] 35.0-35.9, adult; F41.9 Anxiety disorder, unspecified; G47.30 Sleep apnea, unspecified; Z98.84 Bariatric surgery status; Z20.822 Contact with and (suspected) exposure to COVID-19
CPT/HCPCS: 36415; 36430; 80053; 83010; 83615; 85025; 85027; 85610; 85652; 85730; 86021; 86038; 86140; 86701; 86702; 86705; 86706; 86850; 86900; 86901; 87389; 87522; 99285; J1568; J2930; J7030; J7050; J7512; P9035; P9073; P9100; U0003